=== PATIENT | male | born 1970 | race Caucasian/White ===

== ENCOUNTER 2016-12-19 00:27 | Inpatient (IN) | payer OTHER ==
[2016-12-19] MEDS ORDERED: ASPIRIN 81 MG CHEWABLE TAB PO ONE (00:40)
--- NOTE | 2016-12-19 00:43 | CPEKG ---
Heart Rate: 59 RR Interval: 1017 P-R Interval: 180 QRSD Interval: 84 QT Interval: 408 QTC Interval: 405 P [place]: 22 QRS [place]: 14 T Wave [place]: 22 EKG Severity - NORMAL ECG - EKG Impression: SINUS RHYTHM Electronically Signed By: Curt Brown 19-Dec-2016 05:18:52
--- NOTE | 2016-12-19 00:52 | EDPHY ---
H & P Stated Complaint: CP, SOB Time Seen by Provider: 12/19/16 00:51 HPI/ROS: Chief Complaint: Chest tightness, shortness of breath HPI: 38-year-old male with a history of coronary artery disease woke from sleep at 11 o'clock this evening feeling sweaty with chest tightness and feeling shortness of breath. Tightness was about a 4/10. Did not have any true pain. Did take 2 nitroglycerin with no significant change. Has had some mild loose stools for the last several days. No fevers or chills. No nausea or vomiting. Sees Dr. Doll, cardiology. Has significant coronary disease with collaterals from his LAD. Had an ME in 2000. Patient also has a history of sleep apnea uses a BiPAP machine at night. Does take aspirin daily. No recent travel or long periods of immobilization. In no new leg pain or swelling. No pain with inspiration. ROS: 10 point Review of Systems is negative except as noted in the HPI. PMH: Coronary artery disease with occlusion of the circumflex and RCA per his report. ME in 2000, Sleep apnea Medications: Plavix, Coreg, Altace, Lipitor, aspirin, Zyrtec, Flonase, CPAP Allergies: No known drug allergies Social History: No smoking, rare alcohol, no recreational drug use Family History: Coronary disease Physical Exam: Gen: Awake, Alert, No Distress, obese HEENT: Nose: no rhinorrhea Eyes: PERRLA, EOMI Mouth: Moist mucosa Neck: Supple, no JVD Chest: nontender, lungs clear to auscultation Heart: S1, S2 normal, no murmur Abd: Soft, non-tender, no guarding Back: no CVA tenderness, no midline tenderness Ext: no edema, non-tender Skin: no rash Neuro: CN II-XII intact, Sensation grossly intact, Strength 5/5 in bilateral upper and lower extremities - Personal History Current Tetanus/Diphtheria Vaccine: Yes Current Tetanus Diphtheria and Acellular Pertussis (TDAP): Yes - Medical/Surgical History Hx Asthma: No Hx Chronic Respiratory Disease: No Hx Diabetes: No Hx Cardiac Disease: Yes Hx Renal Disease: No Hx Cirrhosis: No Hx Alcoholism: No Hx HIV/AIDS: No Hx Splenectomy or Spleen Trauma: No Other PMH: CAD, - Social History Smoking Status: Never smoked Constitutional: Initial Vital Signs Temperature (C) 36.5 C 12/19/16 00:32 Heart Rate 61 12/19/16 00:32 Respiratory Rate 16 12/19/16 00:32 Blood Pressure 120/87 H 12/19/16 00:32 O2 Sat (%) 92 12/19/16 00:32 O2 Delivery Mode Room Air Allergies/Adverse Reactions: No Known Allergies Allergy (Unverified 12/19/16 00:31) Home Medications: Medication Instructions Recorded Altace 12/19/16 Aspirin 12/19/16 Coreg 12/19/16 Lipitor 12/19/16 Nitroglycerin 12/19/16 Plavix 12/19/16 Zyrtec 12/19/16 Medical Decision Making - Diagnostics EKG Interpretation: ECG time 12:41 a.m. sinus rhythm with a rate of 59, normal axis, normal intervals, no acute ST or T-wave changes. Impression: Normal ECG. Imaging Results: Chest x-ray is negative per my interpretation Imaging: I viewed and interpreted images myself ED Course/Re-evaluation: 46-year-old male with a significant coronary history presenting with chest tightness. ECG is normal. Troponin is negative. He has been comfortable in the emergency department. He did receive aspirin and nitroglycerin. I have discussed with Dr. Mabel Jamil, hospitalist. Will admit to her service for further evaluation. - Data Points Laboratory Results: Laboratory Results 12/19/16 00:47 12/19/16 00:47 12/19/16 12/19/16 00:47 00:47 WBC 5.82 10^3/uL 10^3/uL (3.80-9.50) RBC 5.01 10^6/uL 10^6/uL (4.40-6.38) Hgb 16.3 g/dL g/dL (13.7-17.5) Hct 45.3 % % (40.0-51.0) MCV 90.4 fL fL (81.5-99.8) MCH 32.5 pg pg (27.9-34.1) MCHC 36.0 g/dL g/dL (32.4-36.7) RDW 13.0 % % (11.5-15.2) Plt Count 170 10^3/uL 10^3/uL (150-400) MPV 9.9 fL fL (8.7-11.7) Neut % (Auto) 34.6 % L % (39.3-74.2) Lymph % (Auto) 52.4 % H % (15.0-45.0) [place] % (Auto) 9.5 % % (4.5-13.0) Eos % (Auto) 2.2 % % (0.6-7.6) Baso % (Auto) 1.0 % % (0.3-1.7) Nucleat RBC Rel Count 0.0 % % (0.0-0.2) Absolute Neuts (auto) 2.01 10^3/uL 10^3/uL (1.70-6.50) Absolute Lymphs (auto) 3.05 10^3/uL H 10^3/uL (1.00-3.00) Absolute Monos (auto) 0.55 10^3/uL 10^3/uL (0.30-0.80) Absolute Eos (auto) 0.13 10^3/uL 10^3/uL (0.03-0.40) Absolute Basos (auto) 0.06 10^3/uL 10^3/uL (0.02-0.10) Absolute Nucleated RBC 0.00 10^3/uL 10^3/uL (0-0.01) Immature Gran % 0.3 % % (0.0-1.1) Immature Gran # 0.02 10^3/uL 10^3/uL (0.00-0.10) Sodium 136 mEq/L mEq/L (134-144) Potassium 4.3 mEq/L mEq/L (3.5-5.2) Chloride 104 mEq/L mEq/L (97-110) Carbon Dioxide 21 mEq/l L mEq/l (22-31) Anion Gap 11 mEq/L mEq/L (8-16) BUN 16 mg/dL mg/dL (7-23) Creatinine 1.1 mg/dL mg/dL (0.7-1.3) Estimated GFR > 60 Glucose 161 mg/dL H mg/dL (70-100) Calcium 9.9 mg/dL mg/dL (8.5-10.4) Troponin I < 0.012 ng/mL ng/mL (0-0.034) Medications Given: Discontinued Medications Aspirin (Aspirin) 324 mg PO EDNOW ONE Stop: 12/19/16 00:41 Last Admin: 12/19/16 00:45 Dose: 324 mg Departure - Departure Disposition: [facility] Inpatient Acute Clinical Impression: Chest pain Condition: Fair Referrals: NONE *PRIMARY CARE P,. [Primary Care Provider] - As per Instructions
[2016-12-19 01:01] LABS: % IMMATURE GRANULYOCYTES 0.3 % (0.0-1.1); ABSOLUTE IMMATURE GRANULOCYTES 0.02 10^3/uL (0.00-0.10); ADD DIFF? NO; ADD MORPH? NO; ADD SCAN? NO; ATYPICAL LYMPHOCYTE FLAG 10 (0-99); FRAGMENT RBC FLAG 0 (0-99); HEMATOCRIT 45.3 % (40.0-51.0); HEMOGLOBIN 16.3 g/dL (13.7-17.5); LEFT SHIFT FLG 0 (0-99); LIPEMIA HEMOLYSIS FLAG 90 (0-99); MEAN CELL HEMOGLOBIN 32.5 pg (27.9-34.1); MEAN CELL VOLUME 90.4 fL (81.5-99.8); MEAN PLATELET VOLUME 9.9 fL (8.7-11.7); PLATELET CLUMPS FLAG 0 (0-99); PLATELET COUNT 170 10^3/uL (150-400); RED BLOOD CELL COUNT 5.01 10^6/uL (4.40-6.38)
[2016-12-19 01:08] LABS: ANION GAP 11 mEq/L (8-16); CALCIUM 9.9 mg/dL (8.5-10.4); CARBON DIOXIDE 21 mEq/l (22-31); CHLORIDE 104 mEq/L (97-110); CREATININE 1.1 mg/dL (0.7-1.3); GLOMERULAR FILTRATION RATE > 60; GLUCOSE 161 mg/dL (70-100); POTASSIUM 4.3 mEq/L (3.5-5.2); SODIUM 136 mEq/L (134-144)
[2016-12-19 01:20] LABS: TROPONIN I < 0.012 ng/mL (0-0.034)
[2016-12-19] MEDS ORDERED: ONDANSETRON 4 MG/2 ML VIAL IVP PRN (05:26)
[2016-12-19] MEDS ORDERED: ACETAMINOPHEN 325 MG TAB PO PRN (05:26)
[2016-12-19] MEDS ORDERED: 1/2 NS 1,000 ML IV SCH (05:30)
[2016-12-19 06:12] LABS: CHOLESTEROL 191 mg/dL (140-200); CHOLESTEROL/HDL RATIO 6.16 RATIO (1.00-4.97); HIGH DENSITY LIPOPROTEIN 31 mg/dL (40-65); LDL/HDL RATIO 4.42 RATIO (1.00-3.64); LOW DENSITY LIPOPROTEIN 137 mg/dL (70-100); NON-HIGH DENSITY LIPOPROTEIN 160 mg/dL (90-129); TRIGLYCERIDE 118 mg/dL (40-150); VERY LOW DENSITY LIPOPROTEINS 23 mg/dL (8-25)
[2016-12-19 06:23] LABS: TROPONIN I < 0.012 ng/mL (0-0.034)
--- NOTE | 2016-12-19 07:51 | GHP ---
[f rep st] HISTORY AND PHYSICAL DATE OF ADMISSION: 12/19/2016 CHIEF COMPLAINT: Chest pressure. HISTORY: The patient is a 46-year-old male with a complicated coronary history. He had his first M I at age 31 with stents to the LAD and right coronary artery in 2000. He had a followup cardiac cat heterization in [facility] 3 years ago which showed complete occlusion of the right co ronary and circumflex with collateral flow. He now re-presents to the hospital with chest tightness . Had onset at 11 p.m. with associated diaphoresis and shortness of breath. He took 2 nitroglyceri n at home and it was no better. This is different from his usual angina presentation as he has prev iously presented with AFib and not chest pain as his indication of ischemia. He describes it as a l eft-sided chest pressure without radiation. It waxes and wanes, and he has a tiny bit left right no w. He has never had chest pressure like this ever before. PAST MEDICAL HISTORY: 1. Coronary artery disease status post stents to the LAD and right coronary artery in 2000. Follow up catheterization 3 years ago at [facility] showed complete right coronary artery and circumfl ex occlusion with collateral flow. 2. Obstructive sleep apnea, on BiPAP. 3. Morbid obesity. 4. Atrial fibrillation. MEDICATIONS: Please see computer record for a full detailed list. ALLERGIES: No known drug allergies. SOCIAL HISTORY: No smoking. No alcohol. Lives with his . 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 REVIEW OF SYSTEMS: Complete review of systems obtained. Review of systems is negative regarding co nstitutional, HEENT, GI, pulmonary, cardiovascular, , hematology, skin, muscular, endocrine, psych except for positives and negatives as noted in HPI. FAMILY HISTORY: Positive for coronary artery disease. PHYSICAL EXAMINATION: GENERAL: Well-developed, well-nourished male in no acute distress. VITAL SI GNS: Temperature is 36.5, pulse 63, blood pressure 121/83, saturating 94% on room air. EYES: Norm al conjunctivae. Pupils equal, round, reactive to light. ENT: Normal ears and nose. Hearing inta ct. Normal teeth. Oropharynx moist. NECK: Trachea midline. No thyromegaly. CHEST: Normal resp iratory effort. LUNGS: Clear to auscultation bilaterally. CARDIOVASCULAR: Regular rate and rhyth m. No murmur. No lower extremity edema. ABDOMEN: Soft, nontender. No hepatosplenomegaly. SKIN: Warm, dry, intact. No rash. MUSCULOSKELETAL: No cyanosis or clubbing. Strength 5/5 in upper an d lower extremities. NEUROLOGIC: Cranial nerves intact. Normal sensation to light touch. PSYCHIA TRIC: Alert and oriented x3. Normal affect. Normal judgment and insight. Normal memory. LABORATORY DATA: White count 5.82, hematocrit 45.3, platelets 170. Sodium 136, potassium 4.3, chlo ride 104, bicarb 21, BUN 16, creatinine 1.1, glucose 161. Troponins negative. EKG viewed by me. M y first interpretation is normal sinus rhythm, no ST or T-wave changes. Chest x-ray is negative. ASSESSMENT/PLAN: 1. Chest pain. He has a complicated coronary artery disease history, having his first FL at age 31 . He has known 100% right coronary artery and circumflex occlusion with collateral flow. His previ ous cardiac catheterizations are all at [facility], but his history professor is Dr. Kwame Doll, a nd those records would be in the office. Given his complicated history, [facility] him rather than stress testing. I will keep him n.p.o. and Cardi ology should see him in the morning. Continue his aspirin and resume Coreg when dose clarified. Wi ll check his lipids, he is on a statin drug. 2. Obstructive sleep apnea. Continue BiPAP q.h.s. per home settings. 3. Morbid obesity. BMI 43. 4. History of atrial fibrillation. Will monitor. He is currently in normal sinus rhythm. CODE STATUS: Full. ADMISSION STATUS: Will admit to observation pending chest pain workup. DEEP VEIN THROMBOSIS PROPHYLAXIS: He is low risk. Will hold off on pharmacologic prophylaxis at th is time. /[id number]/MODL
--- NOTE | 2016-12-19 08:41 | CPEKG ---
Heart Rate: 62 RR Interval: 968 P-R Interval: 180 QRSD Interval: 86 QT Interval: 416 QTC Interval: 423 P [place]: 24 QRS [place]: 11 T Wave [place]: 19 EKG Severity - ABNORMAL ECG - EKG Impression: SINUS RHYTHM EKG Impression: CONSIDER ANTEROSEPTAL INFARCT Electronically Signed By: Hebert Sánchez 19-Dec-2016 10:43:32
[2016-12-19] MEDS ORDERED: NITROGLYCERIN 0.4 MG BTL SL PRN (10:43)
[2016-12-19] MEDS ORDERED: CLOPIDOGREL BISULFATE 75 MG TAB PO SCH (10:45)
[2016-12-19] MEDS ORDERED: diphenhydrAMINE 25 MG CAP PO ONE (11:59)
[2016-12-19] MEDS ORDERED: TEMAZEPAM 15 MG CAP PO PRN (11:59)
[2016-12-19] MEDS ORDERED: DIAZEPAM 5 MG TAB PO ONE (11:59)
[2016-12-19] MEDS: ASPIRIN 81 MG CHEWABLE TAB PO SCH (12:14)
--- NOTE | 2016-12-19 12:14 | PDCARCONS ---
Cardiology Consult Reason for Consult: chest pain Chief Complaint: chest pain, diaphoresis Requesting Physician: Loulou History of Present Illness: 46 yo with known CAD hx. of PCI with occluded RCA and Cx with one day of substernal chest pain, shortness of breath and coolness. Still having vague discomfort. History Information - Allergies/Home Medication List Allergies/Adverse Reactions: No Known Allergies Allergy (Unverified 12/19/16 00:31) Home Medications: Aspirin [Aspirin 81mg (*)] 162 mg PO DAILY 12/19/16 [Last Taken 12/18/16] Atorvastatin Calcium [Lipitor 80 mg] 80 mg PO HS 12/19/16 [Last Taken 12/18/16] Carvedilol [Coreg (*)] 6.25 mg PO BIDMEAL 12/19/16 [Last Taken 12/18/16 18:00] Cetirizine [ZyrTEC 10 mg (*)] 10 mg PO DAILY 12/19/16 [Last Taken 12/18/16] Clopidogrel Bisulfate [Plavix (*)] 75 mg PO DAILY 12/19/16 [Last Taken 12/18/16] Nitroglycerin [Nitrostat 0.4 mg (*)] 0.4 mg SL Q5M PRN 12/19/16 [Last Taken 21:00 2 tabs] Ramipril [Altace 2.5mg (*)] 2.5 mg PO DAILY 12/19/16 [Last Taken 12/18/16] I have personally reviewed and updated: medical history, social history, surgical history - Past Medical History coronary artery disease - Surgical History Reports: angioplasty. Denies: no pertinent surgical hx - Social History Smoking Status: Never smoked Cardiac History - Cardiac History Cardiac Risk Factors: lipidemia Timing/Duration: Days Severity: moderate Severity Scale: 5 Location: substernal Activities at Onset: rest Physical Exam Temp Pulse Resp BP Pulse Ox 36.8 C 65 16 136/80 H 98 12/19/16 08:07 12/19/16 08:07 12/19/16 08:07 12/19/16 08:07 12/19/16 08:07 O2 (L/minute) 2 Constitutional: no apparent distress Eyes: PERRL, anicteric sclera Ears, Nose, Mouth, Throat: moist mucous membranes Cardiovascular: regular rate and rhythym, no murmur, rub, or gallop, No systolic murmur, No JVD Peripheral Pulses: 1+: carotid (R), carotid (L), 2+: femoral (R), femoral (L) Respiratory: no respiratory distress, no rales or rhonchi Genitourinary: no bladder fullness Skin: warm, normal color Musculoskeletal: full muscle strength, no muscle tenderness, normal joint ROM Neurologic: AAOx3 Psychiatric: interacting appropriately Lymph, Heme, Immunologic: no cervical LAD, no supraclavicular LAD Lab and Imaging 12/19/16 00:47 12/19/16 00:47 WBC 5.82 10^3/uL (3.80-9.50) 12/19/16 00:47 RBC 5.01 10^6/uL (4.40-6.38) 12/19/16 00:47 Hgb 16.3 g/dL (13.7-17.5) 12/19/16 00:47 Hct 45.3 % (40.0-51.0) 12/19/16 00:47 MCV 90.4 fL (81.5-99.8) 12/19/16 00:47 MCH 32.5 pg (27.9-34.1) 12/19/16 00:47 MCHC 36.0 g/dL (32.4-36.7) 12/19/16 00:47 RDW 13.0 % (11.5-15.2) 12/19/16 00:47 Plt Count 170 10^3/uL (150-400) 12/19/16 00:47 MPV 9.9 fL (8.7-11.7) 12/19/16 00:47 Neut % (Auto) 34.6 % (39.3-74.2) L 12/19/16 00:47 Lymph % (Auto) 52.4 % (15.0-45.0) H 12/19/16 00:47 [place] % (Auto) 9.5 % (4.5-13.0) 12/19/16 00:47 Eos % (Auto) 2.2 % (0.6-7.6) 12/19/16 00:47 Baso % (Auto) 1.0 % (0.3-1.7) 12/19/16 00:47 Nucleat RBC Rel Count 0.0 % (0.0-0.2) 12/19/16 00:47 Absolute Neuts (auto) 2.01 10^3/uL (1.70-6.50) 12/19/16 00:47 Absolute Lymphs (auto) 3.05 10^3/uL (1.00-3.00) H 12/19/16 00:47 Absolute Monos (auto) 0.55 10^3/uL (0.30-0.80) 12/19/16 00:47 Absolute Eos (auto) 0.13 10^3/uL (0.03-0.40) 12/19/16 00:47 Absolute Basos (auto) 0.06 10^3/uL (0.02-0.10) 12/19/16 00:47 Absolute Nucleated RBC 0.00 10^3/uL (0-0.01) 12/19/16 00:47 Immature Gran % 0.3 % (0.0-1.1) 12/19/16 00:47 Immature Gran # 0.02 10^3/uL (0.00-0.10) 12/19/16 00:47 Sodium 136 mEq/L (134-144) 12/19/16 00:47 Potassium 4.3 mEq/L (3.5-5.2) 12/19/16 00:47 Chloride 104 mEq/L (97-110) 12/19/16 00:47 Carbon Dioxide 21 mEq/l (22-31) L 12/19/16 00:47 Anion Gap 11 mEq/L (8-16) 12/19/16 00:47 BUN 16 mg/dL (7-23) 12/19/16 00:47 Creatinine 1.1 mg/dL (0.7-1.3) 12/19/16 00:47 Estimated GFR > 60 12/19/16 00:47 Glucose 161 mg/dL (70-100) H 12/19/16 00:47 Calcium 9.9 mg/dL (8.5-10.4) 12/19/16 00:47 Troponin I < 0.012 ng/mL (0-0.034) 12/19/16 05:55 Triglycerides 118 mg/dL (40-150) 12/19/16 05:55 Cholesterol 191 mg/dL (140-200) 12/19/16 05:55 Cholesterol Risk Factr 1.4 (0.2-1.0) H 12/19/16 05:55 LDL Cholesterol, Calc 137 mg/dL (70-100) H 12/19/16 05:55 LDL Risk Factor 1.4 (0.2-1.0) H 12/19/16 05:55 VLDL Cholesterol 23 mg/dL (8-25) 12/19/16 05:55 Non-HDL Cholesterol 160 mg/dL (90-129) H 12/19/16 05:55 HDL Cholesterol 31 mg/dL (40-65) L 12/19/16 05:55 LDL/HDL Ratio 4.42 RATIO (1.00-3.64) H 12/19/16 05:55 Cholesterol/HDL Ratio 6.16 RATIO (1.00-4.97) H 12/19/16 05:55 Laboratory Tests 12/19/16 12/19/16 00:47 05:55 Troponin I < 0.012 < 0.012 LDL Cholesterol, Calc 137 H EKG Interpretation: Positive for: other (SR with septal Q waves.) A/P Assessment: 46 yo with ecg evidence of anterior RI, chest pressure with known occlusion of the RCA and Cx fed by collaterals from a moderately diseased LAD on past angiography. Risk not well managed with elevated LDL and obesity. Plan: angiogram today optimize risk consider CABG Review of Systems - Review of Systems Constitutional: denies: chills, fever EENTM: no symptoms reported Respiratory: shortness of breath. denies: wheezing Cardiac: chest pain, edema. denies: irregular heart rate, lightheadedness, palpitations, syncope Gastrointestinal/Abdominal: no symptoms reported Genitourinary: no symptoms Musculoskelatal: no symptoms Skin: no symptoms Neurological: no symptoms Hematologic/Lymphatic: no symptoms reported Immunologic/allergic: no symptoms reported
[2016-12-19] MEDS ORDERED: fentaNYL 100 MCG/2 ML INJ ONE ×2 (12:37→13:14)
[2016-12-19] MEDS ORDERED: VERAPAMIL 5 MG/2 ML VIAL ONE (12:37)
[2016-12-19] MEDS ORDERED: MIDAZOLAM 2 MG/2 ML VIAL ONE ×2 (12:37→13:14)
[2016-12-19] MEDS ORDERED: HEPARIN 10,000 UNIT/10 ML MDV ONE (12:37)
[2016-12-19] MEDS ORDERED: LIDOCAINE 1% 300 MG/30 ML SDV ONE (12:37)
[2016-12-19] MEDS ORDERED: IOPAMIDOL (ISOVUE-370) 150 ML BTL IV ONE ×2 (12:38→13:28)
[2016-12-19] MEDS ORDERED: NITROGLYCERIN 0.4 MG BTL SL ONE (13:45)
[2016-12-19] MEDS ORDERED: ATROPINE SULFATE 1 MG/10 ML SYR IVP PRN (13:51)
--- NOTE | 2016-12-19 13:56 | PDDXCAT ---
Diagnostic Cath Note - . 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 80% stenosis after the diagonal. Indeterminate by standard angiogram. Confirmed by intravascular ultrasound LCX: 100% occluded with ghosting of the obtuse marginal branch RCA: 100% occluded with left to right collaterals. EDP: 10 mm of mercury LVEF: 60 Wall motion: Normal Complications: None Estimated blood loss: <50ml Closure method: TR Band Assessment: Severe [place] three-vessel coronary disease with occlusion of the right coronary artery, circumflex artery with 80% stenosis of the LAD in its midportion. Normal left ventricular systolic function. Plan: Coronary artery bypass grafting Intervention: Procedure: Intravascular ultrasound of the indeterminate LAD stenosis by coronary angiography. After reviewing diagnostic angiograms indeterminate mid LAD stenosis was identified. In light of occlusion of the right coronary and circumflex I want to be sure about his LAD stenosis. Patient was anticoagulated with heparin. Using a 5 [place] JL 3.5 guiding catheter left main coronary selectively intubated. Using a 0.014 luge wire the LAD was entered. Intravascular ultrasound was slow pullback was performed. There was an 85% calcific atheroma at the level of the bifurcation of the diagonal. There was acute ST elevation with occlusion by the intravascular ultrasound catheter. Device was removed patient was administered sublingual nitroglycerin with resolution of EKG changes. Conclusions: Critical mid LAD stenosis. In light of three-vessel disease and age of 46 would recommend coronary artery bypass grafting. This will be discussed with the patient family. Patient Problems: Problems Problem Status Onset Coronary artery disease Acute Chest pain Acute
[2016-12-19] MEDS ORDERED: MUPIROCIN 2% 22 GM OINT NS ONE (16:23)
[2016-12-19 17:36] LABS: HEMOGLOBIN A1C 7.1 % (4.0-6.0)
[2016-12-19] MEDS: CARVEDILOL 6.25 MG TAB PO SCH (19:08)
--- NOTE | 2016-12-19 19:44 | GCON ---
[f rep st] CONSULTATION DATE OF CONSULTATION: 12/19/2016 REFERRING PHYSICIAN: Primo Mcmullen MD Patient seen at the request of Dr. Mcmullen, with the patient's permission. IMPRESSION: 1. Unstable angina pectoris with severe 3-vessel disease. 2. History of paroxysmal atrial fibrillation. 3. Morbid obesity. 4. Sleep apnea. 5. Hyperlipidemia. RECOMMENDATIONS: This gentleman should undergo coronary artery revascularization on this admission. Because of his unstable anginal nature we will proceed with surgery in the morning despite his vida ng on Plavix. He understands the slight increased risk of bleeding, although in my experience it is extremely rare that Plavix contributes to significant intraoperative bleeding. Because of his paro xysmal atrial fibrillation and his likely predisposition to it with obesity, sleep apnea and heart d isease, I have offered him Su Maze 4 procedure simultaneously. He is agreeable and appreciates our recommendations. CHIEF COMPLAINT: A 46-year-old gentleman with a cardiac history beginning at age 31 with multiple p rior stents. He does have a bad family history with early coronary disease in multiple family membe rs. He has known severe hyperlipidemia. He had onset of severe diaphoresis and shortness of breath with chest tightness at 3:00 a.m. and presented to the ER. Diagnostic cath today showed severe 3-v essel disease. Please see cath report with normal LV function. MEDICATIONS: Please see computer record for full details. ALLERGIES: Denied. SOCIAL HISTORY: Does not smoke. He does not drink. 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 REVIEW OF SYSTEMS: Except for presenting complaints he is otherwise asymptomatic. PHYSICAL EXAMINATION: GENERAL: This is a morbidly obese, young gentleman lying supine, accompanied by his , no apparent distress. VITAL SIGNS: 130/84, pulse 66, respirations 16, O2 saturation 95% on room air. HEENT: Normocephalic. PERRLA. EOMI. Neck without bruit, adenopathy or thyromeg brendon. HEART: Rate is regular without murmur. LUNGS: Clear. ABDOMEN: Markedly protuberant. Maksim l sounds are active, soft, nontender. Unable to palpate organs due to obesity. Pedal pulses are 2+ and symmetrical. He has 1+ edema bilaterally. Please see cath report for details as well as lab reports. /[id number]/MODL
[2016-12-19] MEDS: ATORVASTATIN CALCIUM 40 MG TAB PO SCH (20:52)
[2016-12-19] MEDS: MUPIROCIN 2% 22 GM OINT NS SCH (20:55)
[2016-12-19] MEDS ORDERED: NON-FORMULARY NEW DRUG (Atorvastatin Calcium [Lipitor 80 Mg] 80 MG) PO SCH (21:00)
[2016-12-19] MEDS ORDERED: CHLORHEXIDINE GLUC HIBICLENS 118 ML BTL TP SCH (21:00)
[2016-12-20] MEDS ORDERED: MANNITOL 25% 12.5 GM/50 ML VIAL IV ONE (06:00)
[2016-12-20] MEDS ORDERED: PHENYLEPHRINE HCL 50 MG in NS 250 ML IV ONE (06:00)
[2016-12-20] MEDS ORDERED: VERAPAMIL 5 MG, NITROGLYCERIN 2.5 MG, HEPARIN 500 UNIT, SODIUM BICARBONATE 0.2 MEQ in L... MISC ONE (06:00)
[2016-12-20] MEDS ORDERED: AMINOCAPROIC ACID 5 GM/20 ML VIAL IV ONE (06:00)
[2016-12-20] MEDS ORDERED: NOREPINEPHRINE BITARTRATE 16 MG in NS 250 ML IV ONE (06:00)
[2016-12-20] MEDS ORDERED: niCARdipine/NACL 200 ML IV SCH (06:00)
[2016-12-20] MEDS ORDERED: ceFAZolin 3 GM in D5W 100 ML IV ONE (06:00)
[2016-12-20] MEDS ORDERED: INSULIN REGULAR HUMAN 100 UNIT in NS 100 ML IV ONE (06:00)
[2016-12-20] MEDS ORDERED: CITRATE DEXTROSE SOLN 500 ML BAG MISC ONE (06:00)
[2016-12-20] MEDS ORDERED: SODIUM BICARBONATE 20 MEQ, LIDOCAINE 1% 10 ML in NORMOSOL-R 1,000 ML MISC ONE (06:00)
[2016-12-20] MEDS ORDERED: LIDOCAINE 2% 100 MG/5 ML SYR ONE (06:34)
[2016-12-20] MEDS ORDERED: NA BICARBONATE 50 MEQ/50 ML VIAL ONE (06:34)
[2016-12-20] MEDS ORDERED: AMIODARONE HCL 150 MG/3 ML VIAL ONE (06:34)
[2016-12-20] MEDS ORDERED: DOPamine/DEXTROSE/250 ML BAG IV ONE (06:34)
[2016-12-20] MEDS ORDERED: AMINOCAPROIC ACID 5 GM/20 ML VIAL ONE (06:34)
[2016-12-20] MEDS ORDERED: methylPREDNISolone SOD SUCC 1 GM/8 ML VIAL ONE (06:34)
[2016-12-20] MEDS ORDERED: MILRINONE/DEXTROSE/100 ML BAG IV ONE (06:34)
[2016-12-20] MEDS ORDERED: HEPARIN 10,000 UNIT/10 ML MDV ONE (06:34)
[2016-12-20] MEDS ORDERED: niCARdipine/NACL/200 ML BAG IV ONE (06:34)
[2016-12-20] MEDS ORDERED: ADENOSINE 6 MG/2 ML VIAL ONE (06:34)
[2016-12-20] MEDS ORDERED: CITRATE DEXTROSE SOLN 500 ML BAG ONE (06:34)
[2016-12-20] MEDS ORDERED: MAGNESIUM SULFATE 1 GM/2 ML VIAL ONE (06:34)
[2016-12-20] MEDS ORDERED: POTASSIUM Cl (KCl) 20 MEQ/50 ML BAG IV ONE (06:34)
[2016-12-20] MEDS ORDERED: ALBUMIN 5% 250 ML BOTTLE IV ONE (06:34)
[2016-12-20] MEDS ORDERED: CALCIUM CHLORIDE 1 GM/10 ML INJ ONE (06:34)
[2016-12-20] MEDS ORDERED: PROTAMINE SULFATE 50 MG/5 ML VIAL IVP ONE ×2 (06:34→18:44)
[2016-12-20] MEDS ORDERED: ceFAZolin 1 GM VIAL ONE (06:35)
[2016-12-20] MEDS ORDERED: RAMIPRIL 2.5 MG CAP PO SCH (09:00)
[2016-12-20] MEDS ORDERED: LR 1,000 ML IV ONE (11:12)
--- NOTE | 2016-12-20 12:02 | SOAPPROG ---
JAMISON Progress Note Assessment/Plan: Assessment: 1. Three-vessel coronary disease. 2. Angina. 3. Hyperlipidemia Plan: Coronary artery bypass grafting today 12/20/16 12:01 Subjective: Uneventful night. No resting chest pain. Cardiac review of systems is negative for chest pain, shortness of breath, PND , orthopnea, palpitations, syncope, near syncope, edema. Objective: Vital Signs Temp Pulse Resp BP Pulse Ox 36.8 C 72 16 138/62 H 92 12/20/16 11:20 12/20/16 11:20 12/20/16 11:20 12/20/16 11:20 12/20/16 11:20 12/19/16 12/20/16 12/21/16 05:59 05:59 05:59 Intake Total 500 Balance 500 Physical Exam - Physical Exam General Appearance: alert, no apparent distress Neck: non-tender, full range of motion Respiratory: chest non-tender, lungs clear Cardiac/Chest: normal peripheral pulses, regular rate, rhythm ICD10 Worksheet Patient Problems: Problems Problem Status Onset Coronary artery disease Acute Chest pain Acute
[2016-12-20] MEDS: MUPIROCIN 2% 22 GM OINT NS SCH ×2 (12:18→21:00)
[2016-12-20] MEDS ORDERED: MIDAZOLAM 2 MG/2 ML VIAL IVP ONE (12:46)
--- NOTE | 2016-12-20 12:46 | PDANEPAE ---
ANE History of Present Illness 46 yo cabg/maze cad s/p ptca nl LV Htn PAF BENIGNO Obesity ANE Past Medical History - Cardiovascular History Hx Hypertension: Yes Hx Arrhythmias: Yes Hx Chest Pain: Yes Hx Coronary Artery / Peripheral Vascular Disease: Yes Hx CHF / Valvular Disease: No Hx Palpitations: No - Pulmonary History Hx COPD: No Hx Asthma/Reactive Airway Disease: No Hx Recent Upper Respiratory Infection: No Hx Oxygen in Use at Home: No - Endocrine History Hx Diabetes: No ANE Patient History - Allergies Allergies/Adverse Reactions: No Known Allergies Allergy (Unverified 12/19/16 00:31) - Home Medications Home medications: home medication list seen and reviewed Home Medications: Aspirin [Aspirin 81mg (*)] 162 mg PO DAILY 12/19/16 [Last Taken 12/18/16] Atorvastatin Calcium [Lipitor 80 mg] 80 mg PO HS 12/19/16 [Last Taken 12/18/16] Carvedilol [Coreg (*)] 6.25 mg PO BIDMEAL 12/19/16 [Last Taken 12/18/16 18:00] Cetirizine [ZyrTEC 10 mg (*)] 10 mg PO DAILY 12/19/16 [Last Taken 12/18/16] Clopidogrel Bisulfate [Plavix (*)] 75 mg PO DAILY 12/19/16 [Last Taken 12/18/16] Nitroglycerin [Nitrostat 0.4 mg (*)] 0.4 mg SL Q5M PRN 12/19/16 [Last Taken 21:00 2 tabs] Ramipril [Altace 2.5mg (*)] 2.5 mg PO DAILY 12/19/16 [Last Taken 12/18/16] - NPO status NPO Since - Liquids (Date): 12/20/16 NPO Since - Liquids (Time): 00:01 NPO Since - Solids (Date): 12/20/16 NPO Since - Solids (Time): 00:01 - Anes Hx Anes Hx: no prior problems - Smoking Hx Smoking Status: Never smoked ANE Labs/Vital Signs - Labs Result Diagrams: 12/19/16 00:47 12/19/16 00:47 - Vital Signs Blood Pressure: 138/62 Heart Rate: 72 Respiratory Rate: 16 O2 Sat (%): 92 Height: 5 ft 11 in Weight: 139.2 kg ANE Physical Exam - Airway Neck exam: FROM Mallampati Score: Class 3 Mouth exam: normal dental/mouth exam - Pulmonary Pulmonary: no respiratory distress - Cardiovascular Cardiovascular: regular rate and rhythym - ASA Status ASA Status: IV ANE Anesthesia Plan Anesthesia Plan: general endotracheal anesthesia Lines/Monitors: arterial line, central line, DEYSI
[2016-12-20] MEDS ORDERED: fentaNYL 100 MCG/2 ML INJ ONE ×2 (12:48→12:49)
[2016-12-20] MEDS ORDERED: REMIFENTANIL HCL 1 MG VIAL ONE ×3 (12:48→17:34)
[2016-12-20] MEDS ORDERED: ROCURONIUM 100 MG/10 ML VIAL ONE (12:49)
[2016-12-20] MEDS ORDERED: PROPOFOL/EMULSION 500 MG/50 ML BOTTLE IV ONE ×3 (12:49→17:34)
[2016-12-20] MEDS ORDERED: MINERAL OIL 10 ML VIAL ONE (12:52)
[2016-12-20] MEDS ORDERED: PAPAVERINE HCL 60 MG/2 ML SDV ONE (12:52)
[2016-12-20] MEDS ORDERED: VERAPAMIL 5 MG/2 ML VIAL ONE (12:52)
[2016-12-20] MEDS ORDERED: DEXMEDETOMIDINE HCL 400 MCG in NS 100 ML IV ONE (13:30)
[2016-12-20] MEDS ORDERED: HYDROmorphONE/DILAUDID 2 MG/ML INJ ONE (16:47)
[2016-12-20] MEDS ORDERED: MAGNESIUM SULF 2 GM/WATER 50 ML BAG IV ONE (17:51)
[2016-12-20] MEDS ORDERED: DESMOPRESSIN ACETATE 30 MCG in NS 50 ML IV ONE (18:30)
--- NOTE | 2016-12-20 19:39 | POSTOPPROG ---
Post Op Note Date of Operation: 12/20/16 Surgeon: Cliff Lema Bread And Pastry Baker: Henok Anesthesiologist: Claudia Anesthesia: GET(General Endotracheal) Pre-op Diagnosis: ASHD, PAF, morbid obesity Procedure: CAB 3 Dc-Lad, SVG-Lcx,Pda, EVH, L side ablation w Atriclip Inf/Abcess present in the surg proc area at time of surgery?: No EBL: 100-500 Drains: Other (3 blakes)
[2016-12-20] MEDS ORDERED: MAGNESIUM SULF 2 GM/WATER 50 ML IV ONE (19:46)
[2016-12-20] MEDS ORDERED: HYDROCODONE/APAP 5/325 TAB PO PRN (19:46)
[2016-12-20] MEDS ORDERED: D50W 25 GM/50 ML SYR IVP PRN (19:46)
[2016-12-20] MEDS ORDERED: MAGNESIUM HYDROXIDE 30 ML UDCUP PO PRN (19:46)
[2016-12-20] MEDS ORDERED: MEPERIDINE 25 MG/ML SYR IVP PRN (19:46)
[2016-12-20] MEDS ORDERED: POLYETHYLENE GLYCOL 3350 17 GM PKT PO PRN (19:46)
[2016-12-20] MEDS ORDERED: ACETAMINOPHEN 650 MG SUPP PR PRN (19:46)
[2016-12-20] MEDS ORDERED: SODIUM CL NASAL 45 ML BTL EACHNARE PRN (19:46)
[2016-12-20] MEDS ORDERED: POTASSIUM Cl (KCl) 50 ML IV PRN (19:46)
[2016-12-20] MEDS ORDERED: LACTULOSE 20 GM/30 ML UDCUP PO PRN (19:46)
[2016-12-20] MEDS ORDERED: CEPACOL LOZENGE PO PRN (19:46)
[2016-12-20] MEDS ORDERED: PANTOPRAZOLE SODIUM 40 MG in NS 100 ML IV ONE (19:46)
[2016-12-20] MEDS ORDERED: BISACODYL 10 MG SUPP PR PRN (19:46)
[2016-12-20] MEDS ORDERED: INSULIN REGULAR HUMAN 100 UNIT in NS 100 ML IV SCH (20:00)
[2016-12-20] MEDS ORDERED: NS 1,000 ML IV SCH (20:00)
[2016-12-20] MEDS: CARVEDILOL 6.25 MG TAB PO SCH ×2 (21:20→21:21)
[2016-12-20] MEDS: ASPIRIN 81 MG CHEWABLE TAB PO SCH (21:21)
--- NOTE | 2016-12-20 22:10 | CPEKG ---
Heart Rate: 84 RR Interval: 714 P-R Interval: 184 QRSD Interval: 82 QT Interval: 376 QTC Interval: 445 P [place]: 58 QRS [place]: 25 T Wave [place]: 4 EKG Severity - ABNORMAL ECG - EKG Impression: SINUS RHYTHM EKG Impression: ABNRM R PROG, CONSIDER ASMI OR LEAD PLACEMENT Electronically Signed By: Hebert Sánchez 21-Dec-2016 07:26:25
[2016-12-20 22:29] LABS: CALCULATED OXYGEN SATURATION 99 % (92-95); O2 CONCENTRATIION 80 % (0-100)
[2016-12-20] MEDS: fentaNYL 100 MCG/2 ML INJ IVP PRN (22:42)
[2016-12-20] MEDS: ceFAZolin 3 GM in D5W 100 ML IV SCH (22:56)
[2016-12-20] MEDS ORDERED: FUROSEMIDE 20 MG/2 ML VIAL IV ONE (23:00)
[2016-12-20] MEDS: CETIRIZINE 10 MG TAB PO SCH (23:24)
[2016-12-20] MEDS: DEXMEDETOMIDINE HCL 400 MCG in NS 100 ML IV SCH (23:26)
[2016-12-20] MEDS: SENNOSIDES/DOCUSATE SODIUM TAB PO SCH (23:45)
[2016-12-21] MEDS: DEXMEDETOMIDINE HCL 400 MCG in NS 100 ML IV SCH ×3 (01:19→04:32)
--- NOTE | 2016-12-21 02:38 | GOP ---
[f rep st] OPERATIVE REPORT DATE OF OPERATION: 12/20/2016 SURGEON: Cliff Lema DO SHIP JOINER: Harsha Whiting PA-C. ANESTHESIOLOGIST: Dr. Farr PREOPERATIVE DIAGNOSIS: 1. Unstable angina pectoris with severe 3-vessel disease. 2. Paroxysmal atrial fibrillation. 3. Morbid obesity. 4. Sleep apnea. POSTOPERATIVE DIAGNOSIS: 1. Unstable angina pectoris with severe 3-vessel disease. 2. Paroxysmal atrial fibrillation. 3. Morbid obesity. 4. Sleep apnea. PROCEDURE PERFORMED: 1. Coronary bypass grafting x3 with left internal mammary artery to the left anterior descending artery, saphenous vein graft to the lateral circumflex, and saphenous vein graft to the posterior descending artery. 2. Endoscopic vein harvest. 3. Left-sided ablation with all left-sided Su Maze lesion sets performed with an Atra clip, no right-sided lesions were performed. FINDINGS: DESCRIPTION OF PROCEDURE: Patient was brought to the operating room, intubated , and monitoring lines were placed. He was prepped and draped in sterile classical manner. Sternotomy was performed. The mammary was harvested, it was a 2 mm vessel with brisk flow. The aorta appeared to be intact with good LV function. Chambers were not markedly enlarged, despite the patient's morbid obesity. The aorta was without thickening or calcification. Venous conduits were good. Attempted endoscopic harvesting of the vein was performed; however, due to his obesity and collapsing of the tunnel as well as bleeding, we had to convert to open in order to harvest vein from the left thigh. This was then closed prior to bypass. Subsequently, we cannulated both cava and ascending aorta. Cardiopulmonary bypass was begun. Confirmed the patient had no evidence of exit or entrance block on either pulmonary vein. We then arrested the heart and performed pulmonary vein ablation with 8-10 lesion sets on both sides until transmurality was confirmed, with less than 10 seconds required to perform radiofrequency on the last attempt. We then opened the left atrial appendage, which was free of thrombus and completed the lesion set to the left superior pulmonary vein. A 35 mm Atra clip was then applied without difficulty. We then exposed the mitral valve through the right superior pulmonary vein after having previously defined the fat off Sondergaard groove in order to have better ablation lines. The left atrium was opened, it was retracted. We then performed cryo lesions on the dome lesion for 3 minutes, connecting the pulmonary veins, and radiofrequency ablation on the inferior lesion set. We then performed cryoablation to the isthmus lesion and overlapped that to a direct coronary sinus lesion with cryo for 3 minutes, overlapping the isthmus line. The left atrium was then closed. Because the patient only had paroxysmal atrial fibrillation and due to his morbid obesity this took quite some time, we had decided not to do the right- sided lesion set. We then exposed the lateral circumflex, which was a heavily calcified vessel throughout its course and chronically occluded. It was opened prior to the bifurcation. It was a 1.5 mm vessel, SVG was grafted to it but had rather poor flow. This anastomosis was completed proximally. We then performed a vein graft to the PDA, which was a thickened vessel measuring 2 mm in diameter. Throughout its course, it was quite thickened. It was also chronically occluded. It had better flows with injection and the proximal anastomosis was completed to the ascending aorta. Rewarming had begun while the mammary was grafted to the mid LAD, which was a 1.8 mm good quality vessel. The mammary was a 1.8 to 2 mm vessel with brisk flow. It was tacked to the epicardium. Crossclamp was removed with suction on the ascending aortic vent, with intermittent aspiration of the LV apex. When no further air was identified, the patient was weaned from bypass. It became evident that he had some oxygenation issues, which was probably due to shunting. We then resumed cardiopulmonary bypass for a period of time in order to let that resolve. He then was weaned from bypass without issues, with oxygenation; however, he had some bleeding from the poor quality circumflex vessel. We then re-arrested the heart in order to suture that because of the difficult exposure of his thickened heart and deep cavity and obese chest. This was completed. The cross -clamp was then removed again. He was then easily weaned from bypass. The heparin was reversed with protamine. The cannulas were removed and oversewn. I then spent some time correcting his coagulopathy. When we were satisfied no further bleeding was encountered, the lower portion of the pericardium was closed, leaving the upper portion open. The chest was approximated with wires and sternal bands. Because of the tension on the upper portion anastomosis, additional wires were placed due to his obesity. The remainder of the wounds were closed in a standard fashion. He was returned to ICU in stable condition. /[id number]/MODL MTDD
[2016-12-21] MEDS: ALBUMIN 5% 250 ML IV PRN ×2 (04:32→05:17)
[2016-12-21 04:59] LABS: % IMMATURE GRANULYOCYTES 0.4 % (0.0-1.1); ABSOLUTE IMMATURE GRANULOCYTES 0.04 10^3/uL (0.00-0.10); ADD DIFF? NO; ADD MORPH? NO; ADD SCAN? NO; ATYPICAL LYMPHOCYTE FLAG 0 (0-99); FRAGMENT RBC FLAG 0 (0-99); HEMATOCRIT 34.2 % (40.0-51.0); LEFT SHIFT FLG 20 (0-99); LIPEMIA HEMOLYSIS FLAG 90 (0-99); MEAN CELL HEMOGLOBIN 32.2 pg (27.9-34.1); MEAN CELL HEMOGLOBIN CONCENTR. 35.1 g/dL (32.4-36.7); MEAN CELL VOLUME 91.7 fL (81.5-99.8); MEAN PLATELET VOLUME 10.1 fL (8.7-11.7); PLATELET CLUMPS FLAG 0 (0-99); PLATELET COUNT 115 10^3/uL (150-400); RED BLOOD CELL COUNT 3.73 10^6/uL (4.40-6.38); RED CELL DISTRIBUTION WIDTH 13.2 % (11.5-15.2)
[2016-12-21 05:11] LABS: CALCULATED OXYGEN SATURATION 92 % (92-95); O2 CONCENTRATIION 40 % (0-100)
[2016-12-21 05:18] LABS: ANION GAP 10 mEq/L (8-16); CALCIUM 8.5 mg/dL (8.5-10.4); CARBON DIOXIDE 22 mEq/l (22-31); CHLORIDE 107 mEq/L (97-110); CREATININE 1.3 mg/dL (0.7-1.3); GLOMERULAR FILTRATION RATE 59; GLUCOSE 127 mg/dL (70-100); POTASSIUM 4.4 mEq/L (3.5-5.2); SODIUM 139 mEq/L (134-144)
[2016-12-21] MEDS: HEPARIN 5,000 UNIT/0.5 ML SYR SC SCH ×3 (06:09→21:49)
[2016-12-21] MEDS: fentaNYL 100 MCG/2 ML INJ IVP PRN ×5 (06:27→19:21)
[2016-12-21] MEDS ORDERED: ALBUMIN 5% 500 ML IV ONE ×2 (06:30→12:30)
[2016-12-21] MEDS ORDERED: DOPamine/DEXTROSE/250 ML BAG IV ONE (07:11)
[2016-12-21] MEDS: ceFAZolin 3 GM in D5W 100 ML IV SCH ×3 (07:17→21:49)
--- NOTE | 2016-12-21 07:43 | SOAPPROG ---
SOAP Progress Note Assessment/Plan: POD #1 CABGx3 (CHACON-LAD, SVG-circ, SVG-PDA), left-sided Su-Maze with AtriClip to DWAYNE, EVH to open SVG harvest left thigh Unstable angina with severe 3VD s/p CABGx3 - Wean dopamine as tolerated for MAPs 65 - ASA/Eliquis for graft thromboprophylaxis - AL/FC to remain - CTs to suction for + air leak Paroxysmal atrial fibrillation s/p left-sided Su-Maze with AtriClip to DWAYNE - Post-op SR - Eliquis for thromboprophylaxis Acute blood loss anemia with coagulopathy - Stable s/p 1U platelets and 2U FFP Metabolic syndrome - Hospitalist consult pending for pre-diabetic management (HgbA1c 7.1) - Anticipate mobility issues d/t morbid obesity - PT/OT ordered Subjective: c/o incisional pain. Difficult to take deep breaths. Objective: Vital Signs Temp Pulse Resp BP Pulse Ox 37.3 C 87 16 91/42 L 95 12/21/16 05:00 12/21/16 07:00 12/21/16 07:00 12/21/16 07:00 12/21/16 07:00 Laboratory Results 12/21/16 04:45 12/21/16 04:45 12/20/16 12/21/16 12/22/16 05:59 05:59 05:59 Intake Total 1228 Output Total 2415 Balance -1187 Physical Exam - Physical Exam General Appearance: alert, mild distress, obese EENT: No scleral icterus (R), No scleral icterus (L) Respiratory: No respiratory distress Cardiac/Chest: regular rate, rhythm Abdomen: non-tender, soft, distended Skin: normal color, warm/dry Extremities: pedal edema Neuro/Psych: no motor/sensory deficits, alert, normal mood/affect, oriented x 3 ICD10 Worksheet Patient Problems: Problems Problem Status Onset Acute blood loss anemia Acute Atrial fibrillation, transient Acute Chest pain Acute Coronary artery disease Acute S/P CABG x 3 Acute S/P ablation of atrial fibrillation Acute
[2016-12-21] MEDS: ASPIRIN 81 MG CHEWABLE TAB PO SCH (09:00)
[2016-12-21] MEDS ORDERED: NALOXONE HCL 0.4 MG/ML INJ IVP PRN (09:04)
[2016-12-21] MEDS ORDERED: KETOROLAC 30 MG/1 ML SDV IVP ONE (09:07)
[2016-12-21] MEDS: HYDROmorphONE/DILAUDID 6 MG/30 ML PCA IV PRN ×2 (09:23→16:50)
[2016-12-21] MEDS: SENNOSIDES/DOCUSATE SODIUM TAB PO SCH ×2 (09:40→20:47)
[2016-12-21] MEDS: MUPIROCIN 2% 22 GM OINT NS SCH ×2 (09:40→20:54)
[2016-12-21] MEDS ORDERED: ALBUMIN 5% 500 ML BOTTLE IV ONE (11:53)
[2016-12-21] MEDS ORDERED: INSULIN LISPRO 100 UNIT/ML SC SCH (12:00)
--- NOTE | 2016-12-21 15:55 | POSTANESTH ---
Post Anesthetic Evaluation Cardiovascular Status: Normal, Stable Respiratory Status: Tx Decrease in SpO2 Level of Consciousness/Mental Status: Alert and Oriented Pain Control: Adequate, Prn Tx Ordered Nausea/Vomiting Control: Adequate, Prn Tx Ordered Complications Possibly Related to Anesthesia: None Noted
--- NOTE | 2016-12-21 17:13 | HOSPPROG ---
Hospitalist Progress Note Assessment/Plan: assessment: 46-year-old male presents with unstable angina in the setting of severe multivessel coronary artery disease complicated by new diagnosis of diabetes mellitus type 2 Plan: 1. Diabetes mellitus type 2. new diagnosis, evidenced by hemoglobin A1c of 7.1% , glucose range has been 127 to 183, placed on insulin drip postoperatively and weaned off today -discussed diagnosis of diabetes with patient, counseled him regarding medication management, lifestyle modifications -patient is averse to needles and is nervous about injecting insulin -given that his hemoglobin A1c is relatively low, the patient may be able to effectively manage his diabetes initially with oral agents -will initiate metformin 500 mg twice daily beginning tomorrow morning once the patient is eating more consistently -will continue to cover with insulin sliding scale in the interim with a.c. and HS dosing - recheck renal function in a.m. to ensure that metformin is safe 2. Acute blood loss anemia. Under the management of the cardiothoracic surgery service 3. Paroxysmal atrial fibrillation. Continue Eliquis, per CT surgery 4. Morbid obesity. BMI of 43, increase patient's risk of complications Hospital Medicine service will continue to consult in this patient's daily care for diabetes management. Subjective: Counseled the patient extensively about the new diagnosis of diabetes, discussing medications and lifestyle management Objective: Vital Signs Temp Pulse Resp BP Pulse Ox 37.1 C 91 18 111/65 93 12/21/16 16:00 12/21/16 17:00 12/21/16 17:00 12/21/16 17:00 12/21/16 17:00 Laboratory Results 12/21/16 04:45 12/21/16 04:45 12/20/16 12/21/16 12/22/16 05:59 05:59 05:59 Intake Total 1228 Output Total 4527 3967 Balance -4824 -1462 - Time Spent With Patient Time Spent with Patient: greater than 35 minutes Time Spent with Patient: Greater than 35 minutes spent on this patients care, greater than 50% of time spent counseling, educating, and coordinating care regarding the above mentioned plan. - Physical Exam Constitutional: obese, uncomfortable, No not in pain ( mid chest) Cardiovascular: regular rate and rhythym, no murmur, rub, or gallop Respiratory: other ( unable to take deep inspiration secondary to anterior chest pain), No expiratory wheeze, No inspiratory crackles, No bronchial breath sounds Gastrointestinal: normoactive bowel sounds, soft, non-tender abdomen, no palpable masses Neurologic: AAOx3 Psychiatric: interacting appropriately, not anxious, not encephalopathic, thought process linear ICD10 Worksheet Patient Problems: Problems Problem Status Onset Acute blood loss anemia Acute S/P ablation of atrial fibrillation Acute Atrial fibrillation, transient Acute S/P CABG x 3 Acute Coronary artery disease Acute Chest pain Acute
[2016-12-21] MEDS: INSULIN LISPRO 100 UNIT/ML SC SCH ×2 (17:50→22:58)
[2016-12-21 18:18] LABS: POTASSIUM 4.3 mEq/L (3.5-5.2)
[2016-12-21] MEDS: APIXABAN 5 MG TAB PO SCH (20:09)
[2016-12-21 20:58] LABS: POTASSIUM 4.4 mEq/L (3.5-5.2)
[2016-12-22] MEDS: fentaNYL 100 MCG/2 ML INJ IVP PRN (02:09)
[2016-12-22] MEDS: ceFAZolin 3 GM in D5W 100 ML IV SCH (05:12)
[2016-12-22 05:20] LABS: % IMMATURE GRANULYOCYTES 0.5 % (0.0-1.1); ABSOLUTE IMMATURE GRANULOCYTES 0.05 10^3/uL (0.00-0.10); ADD DIFF? NO; ADD MORPH? NO; ADD SCAN? NO; ATYPICAL LYMPHOCYTE FLAG 0 (0-99); FRAGMENT RBC FLAG 0 (0-99); HEMATOCRIT 27.8 % (40.0-51.0); HEMOGLOBIN 9.6 g/dL (13.7-17.5); LEFT SHIFT FLG 40 (0-99); LIPEMIA HEMOLYSIS FLAG 90 (0-99); MEAN CELL HEMOGLOBIN 32.1 pg (27.9-34.1); MEAN CELL HEMOGLOBIN CONCENTR. 34.5 g/dL (32.4-36.7); MEAN PLATELET VOLUME 10.1 fL (8.7-11.7); PLATELET CLUMPS FLAG 0 (0-99); PLATELET COUNT 118 10^3/uL (150-400); RED BLOOD CELL COUNT 2.99 10^6/uL (4.40-6.38); RED CELL DISTRIBUTION WIDTH 13.5 % (11.5-15.2)
[2016-12-22 05:40] LABS: ANION GAP 7 mEq/L (8-16); CALCIUM 7.9 mg/dL (8.5-10.4); CARBON DIOXIDE 26 mEq/l (22-31); CHLORIDE 105 mEq/L (97-110); GLOMERULAR FILTRATION RATE > 60; GLUCOSE 143 mg/dL (70-100); POTASSIUM 4.3 mEq/L (3.5-5.2); SODIUM 138 mEq/L (134-144)
[2016-12-22] MEDS: HEPARIN 5,000 UNIT/0.5 ML SYR SC SCH (06:41)
--- NOTE | 2016-12-22 08:10 | SOAPPROG ---
SOAP Progress Note Assessment/Plan: POD #2 CABGx3 (CHACON-LAD, SVG-Circ, SVG-PDA), left-sided Su-Maze with AtriClip to DWAYNE, EVH to open SVG harvest left thigh Unstable angina with severe 3VD s/p CABGx3 - ASA/Eliquis for graft thromboprophylaxis - AL/FC out, CT to bulb suction, PW wrapped - CTs to suction for + air leak Paroxysmal atrial fibrillation s/p left-sided Su-Maze with AtriClip to DWAYNE - Post-op SR - Eliquis for thromboprophylaxis Acute blood loss anemia with coagulopathy - Stable s/p 1U platelets and 2U FFP Metabolic syndrome, pre-diabetes - Hospitalist consult appreciated - Metformin started, pt counseled - PT/OT for mobility issues d/t morbid obesity Subjective: Pain better than yesterday. No appetite. Objective: Vital Signs Temp Pulse Resp BP Pulse Ox 37.7 C 86 16 126/79 H 95 12/22/16 05:22 12/22/16 06:43 12/22/16 06:43 12/22/16 06:43 12/22/16 06:43 Laboratory Results 12/22/16 05:00 12/22/16 05:00 12/21/16 12/22/16 12/23/16 05:59 05:59 05:59 Intake Total 1228 2509 Output Total 2415 2935 Balance -1187 -426 Physical Exam - Physical Exam General Appearance: WD/WN, alert, no apparent distress, obese EENT: No scleral icterus (R), No scleral icterus (L) Neck: normal inspection Respiratory: No respiratory distress Cardiac/Chest: regular rate, rhythm Abdomen: non-tender, soft Skin: normal color, warm/dry Extremities: pedal edema (Trace) Neuro/Psych: no motor/sensory deficits, alert, normal mood/affect, oriented x 3 ICD10 Worksheet Patient Problems: Problems Problem Status Onset Acute blood loss anemia Acute Atrial fibrillation, transient Acute Chest pain Acute Coronary artery disease Acute S/P CABG x 3 Acute S/P ablation of atrial fibrillation Acute
[2016-12-22] MEDS: ASPIRIN 81 MG CHEWABLE TAB PO SCH (09:21)
[2016-12-22] MEDS: SENNOSIDES/DOCUSATE SODIUM TAB PO SCH ×2 (09:22→21:28)
[2016-12-22] MEDS: APIXABAN 5 MG TAB PO SCH ×2 (09:22→21:27)
[2016-12-22] MEDS: metFORMIN HCL 500 MG TAB PO SCH ×2 (09:23→18:28)
[2016-12-22] MEDS: INSULIN LISPRO 100 UNIT/ML SC SCH ×4 (09:23→23:53)
[2016-12-22] MEDS: MUPIROCIN 2% 22 GM OINT NS SCH ×2 (09:26→21:34)
[2016-12-22] MEDS: HYDROmorphONE/DILAUDID 4 MG TAB PO PRN (09:49)
[2016-12-22] MEDS: KETOROLAC 30 MG/1 ML SDV IVP PRN (11:52)
[2016-12-22] MEDS: PANTOPRAZOLE SODIUM 40 MG TAB PO SCH (12:35)
--- NOTE | 2016-12-22 12:53 | WOCRNPDOC ---
WOCRN Advanced Assessment Note - Skin Integrity Problem, Advanced Assess Left Upper Gluteal Cleft/ Left Lower Sacrum Pressure Injury Dressing Type: Open to Air Exudate Amount: None Exudate Characteristic(s): None Rubi Wound Tissue: Blanching, Intact Rubi Wound Swelling: None Wound Bed Color: Purple, Red Site Measurement - Head-to-Toe Length X Width X Depth (cm): [id number] Pressure Injury Stage: Deep Tissue Injury (DTI) Pressure Injury Present on Admit: No Skin Integrity Problem Comment: Area of ecchymotic tissue noted over L upper gluteal cleft/ L lower sacrum, consistent in appearance w/ a suspected deep tissue injury. Despite patient's larger body habitus, his anatomy is such that this part of his body is over a bony prominence. Nursing documented this injury and put in for a wound care consult after patient was admitted to ICU after a prolonged surgery. Presently the wound is dark purple medially, w/ fading redness noted circumferentially. Skin is intact over site, and patient denies any pain when tissue palpated. Initiated pressure-relieving interventions, including turns side to side q2, pressure-relieving support surfaces, and protective barrier cream over site. Nursing advised to off-load this site continuously. Wound care will continue to follow this wound as it evolves, and will see the patient again on 12/25.
[2016-12-22] MEDS: ONDANSETRON 4 MG/2 ML VIAL IVP PRN (13:33)
--- NOTE | 2016-12-22 13:54 | PDINTPN ---
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 No AF currently. Nausea: Limited PO since surgery. Obstructive and Central Sleep Apnea: On ASV, with good compliance and control of respiratory events per patient. Anemia: Hgb stable last 24 hours, no significant bleeding apparent. Hyperglycemia: BSs mid-100s with limited PO. Plan: Advance diet as tolerated. Increase activity. Continue to use ASV nightly. 12/22/16 13:57 Subjective: Slept poorly last night, despite using ASV, which he attributes to pain/ discomfort. Poor appetite, had nausea with first bites today. Tired from walking with therapy today. Objective: Vital Signs Temp Pulse Resp BP Pulse Ox 37.7 C 90 21 H 119/64 90 L 12/22/16 05:22 12/22/16 13:00 12/22/16 13:00 12/22/16 13:00 12/22/16 13:00 Laboratory Results 12/22/16 05:00 12/22/16 05:00 12/21/16 12/22/16 12/23/16 05:59 05:59 05:59 Intake Total 1228 2509 Output Total 2415 2935 730 Balance -1187 -426 -730 CXR: Hypoventilation. Similar to yesterday. Images reviewed. Physical Exam - Physical Exam General Appearance: alert, no apparent distress EENT: normal ENT inspection Neck: normal inspection Respiratory: lungs clear, normal breath sounds Cardiac/Chest: regular rate, rhythm, No edema Abdomen: normal bowel sounds, non-tender, soft Skin: warm/dry Extremities: normal inspection Neuro/Psych: alert, normal mood/affect, oriented x 3 ICD10 Worksheet Patient Problems: Problems Problem Status Onset Acute blood loss anemia Acute Atrial fibrillation, transient Acute Chest pain Acute Coronary artery disease Acute S/P CABG x 3 Acute S/P ablation of atrial fibrillation Acute
--- NOTE | 2016-12-22 14:43 | HOSPPROG ---
Hospitalist Progress Note Assessment/Plan: assessment: 46-year-old male presents with unstable angina in the setting of severe multivessel coronary artery disease complicated by new diagnosis of diabetes mellitus type 2 Plan: 1. Diabetes mellitus type 2. new diagnosis, evidenced by hemoglobin A1c of 7.1% , FBG 143 today -given that his hemoglobin A1c is relatively low, the patient may be able to effectively manage his diabetes initially with oral agents -will initiate metformin 500 mg twice daily once patient is less nauseated and consistently eating -will continue to cover with insulin sliding scale in the interim with a.c. and HS dosing -renal fxn safe for metformin 2. Constipation. Has not had BM since surgery, taking stool softener, recommend advancing to laxatives tomorrow if no BM 3. Morbid obesity. BMI of 43, increase patient's risk of complications Hospital Medicine service will continue to consult in this patient's daily care for diabetes management. Subjective: Patient uncomfortable with some chest discomfort, ongoing nausea, no bowel movement Objective: Vital Signs Temp Pulse Resp BP Pulse Ox 37.7 C 88 16 133/66 H 90 L 12/22/16 05:22 12/22/16 14:00 12/22/16 14:00 12/22/16 14:00 12/22/16 14:00 Laboratory Results 12/22/16 05:00 12/22/16 05:00 12/21/16 12/22/16 12/23/16 05:59 05:59 05:59 Intake Total 1228 2509 Output Total 2415 2935 730 Balance -1187 -426 -730 - Physical Exam Constitutional: no apparent distress, obese, uncomfortable, No not in pain Cardiovascular: regular rate and rhythym, no murmur, rub, or gallop, edema ( Trace bilateral lower extremities) Respiratory: other (Shallow breath secondary to anterior chest discomfort), No expiratory wheeze, No inspiratory crackles, No bronchial breath sounds Gastrointestinal: other (Obese and mildly distended abdomen), No normoactive bowel sounds (Hypoactive bowel sounds), No tenderness, No guarding Skin: other (No erythema around his wounds, no induration, mild bleeding left inner thigh along incision site, no ecchymoses) Neurologic: AAOx3, sensation intact bilaterally Psychiatric: interacting appropriately, not anxious, not encephalopathic, thought process linear ICD10 Worksheet Patient Problems: Problems Problem Status Onset Acute blood loss anemia Acute S/P ablation of atrial fibrillation Acute Atrial fibrillation, transient Acute S/P CABG x 3 Acute Coronary artery disease Acute Chest pain Acute
--- NOTE | 2016-12-22 14:56 | GCON ---
[f rep st] CONSULTATION PULMONARY/CRITICAL CARE CONSULTATION DATE OF CONSULTATION: 12/21/2016 REFERRING PHYSICIAN: Cliff Lema DO REASON FOR REFERRAL: Evaluation and management of anemia, hypoxemia, and sleep apnea. HISTORY: The patient is a 46-year-old man with a known history of early coronary artery disease, st atus post PA at the age of 31 and stenting in 2000. These were found to be occluded several years a go, with collaterals. He was admitted on 12/19 with diaphoresis and shortness of breath, as well as some left-sided chest pressure. He was seen by Cardiology, who found 3-vessel disease and referred him for coronary artery bypass grafting, which was performed yesterday by Dr. Lema. The patient h ad very small distal targets. A Su-Maze procedure was performed due to history of paroxysmal atria l fibrillation. The patient was extubated this morning without difficulty, and complains of signifi cant chest pain at the sternal site. PAST MEDICAL HISTORY: 1. Morbid obesity. 2. Sleep apnea, obstructive and central. The patient has been treated with ASV and he reports that he has excellent control and uses his ASV nightly. MEDICATIONS: At the time of admission include Zyrtec, Plavix, Nitrostat, Lipitor, Coreg, aspirin, a nd Altace. ALLERGIES: None. SOCIAL HISTORY: The patient does not smoke or drink. He lives with his . 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 FAMILY HISTORY: Positive for coronary artery disease. REVIEW OF SYSTEMS: A 10-point review of systems adds nothing to the history of present illness. PHYSICAL EXAMINATION: GENERAL: The patient is awake, alert, and in no acute distress. VITAL SIGNS : His blood pressure is 118/71 with a heart rate of 89. He is afebrile. Oxygen saturations are 96 % on 10 L of oxygen via ASV. HEENT: Normocephalic and atraumatic. No icterus. NECK: No adenopat hy. Trachea is midline. CHEST: Clear to auscultation. CARDIAC: Regular rate and rhythm without murmur. ABDOMEN: Soft, nontender. Bowel sounds are present. EXTREMITIES: No clubbing, cyanosis, or edema. NEURO: The patient is a bit groggy, but awakened to voice and is oriented. He has good strength in all extremities and no apparent sensory deficits. LABORATORY DATA: A chemistry group shows a creatinine of 1.4, up from 1.1 at admission. Blood gluc ose is 141. Hemoglobin is 9.9, down from 12.2. Platelet count is 115. Arterial blood gas prior to extubation showed a pH of 7.39 with a pO2 of 64, CO2 of 38, and a bicarbonate of 24 on 40% oxygen. A chest x-ray shows hypoventilatory changes. Images reviewed. ASSESSMENT: 1. Coronary artery disease, status post coronary artery bypass graft. 2. Paroxysmal atrial fibrillation, status post Su-Maze procedure. The patient has no atrial fibri llation currently. 3. Obstructive and central sleep apnea. The patient has ASV, which he uses nightly and reports goo d compliance and efficacy, with an AHI that is normal, less than 1, on machine readouts. 4. Anemia. This is likely due to the patient's expected perioperative blood loss. 5. Hyperglycemia. The patient's blood sugars are in the mid 100s. RECOMMENDATIONS: 1. Use ASV nightly, adding oxygen as needed. 2. Follow hemoglobin. 3. Use IV insulin to control blood sugars. /[id number]/MODL
[2016-12-22] MEDS: METOCLOPRAMIDE 10 MG/2 ML VIAL IVP PRN (21:38)
[2016-12-23 04:27] LABS: % IMMATURE GRANULYOCYTES 0.8 % (0.0-1.1); ABSOLUTE IMMATURE GRANULOCYTES 0.09 10^3/uL (0.00-0.10); ABSOLUTE NRBC COUNT 0.03 10^3/uL (0-0.01); ADD DIFF? NO; ADD MORPH? NO; ADD SCAN? NO; ATYPICAL LYMPHOCYTE FLAG 0 (0-99); FRAGMENT RBC FLAG 0 (0-99); HEMATOCRIT 26.7 % (40.0-51.0); HEMOGLOBIN 9.2 g/dL (13.7-17.5); LEFT SHIFT FLG 10 (0-99); LIPEMIA HEMOLYSIS FLAG 90 (0-99); MEAN CELL HEMOGLOBIN 32.4 pg (27.9-34.1); MEAN CELL HEMOGLOBIN CONCENTR. 34.5 g/dL (32.4-36.7); MEAN PLATELET VOLUME 9.8 fL (8.7-11.7); NRBC-AUTO% 0.3 % (0.0-0.2); PLATELET CLUMPS FLAG 0 (0-99); PLATELET COUNT 113 10^3/uL (150-400); RED BLOOD CELL COUNT 2.84 10^6/uL (4.40-6.38); RED CELL DISTRIBUTION WIDTH 13.6 % (11.5-15.2)
[2016-12-23 04:41] LABS: ANION GAP 6 mEq/L (8-16); CALCIUM 7.9 mg/dL (8.5-10.4); CARBON DIOXIDE 28 mEq/l (22-31); CHLORIDE 102 mEq/L (97-110); GLOMERULAR FILTRATION RATE > 60; GLUCOSE 120 mg/dL (70-100); POTASSIUM 4.3 mEq/L (3.5-5.2); SODIUM 136 mEq/L (134-144)
[2016-12-23] MEDS: ACETAMINOPHEN 325 MG TAB PO PRN (05:49)
[2016-12-23] MEDS: METOCLOPRAMIDE 10 MG/2 ML VIAL IVP PRN (06:41)
--- NOTE | 2016-12-23 07:38 | SOAPPROG ---
SOAP Progress Note Assessment/Plan: Assessment: POD#3 CABGx3 (CHACON-LAD, SV-LCX, SV-PDA), left-sided Su-Maze + AtriClip LLAA, EVH to open SVG harvest left thigh. Rt thigh vein exposure. Sx severe CAD - s/p CABGx3. Hemodynamically stable early postop course. Secondary prevention with baby ASA, BB as allowed by BP, and statin when eating well. To resume adjunctive Plavix for small and diffusely diseased coros once off Eliquis. Paroxysmal atrial fibrillation - s/p left-sided Su-Maze with AtriClip exclusion of DWAYNE. Holding SR early postop. Antithrombotic prophylaxis with Eliquis; duration as per Maze protocol. Acute expected blood loss anemia with coagulopathy - Exacerbated by preop Plavix. Stable s/p 1U platelets and 2U FFP. VTE prophylaxis with ASA/Eliquis. Metabolic syndrome - BMI > 40. Diabetes by preop A1c of 7.1%. Hospitalist consult obtained. Postop hyperglycemia managed with insulin gtt, transitioning to prandial/SSI/OHA as per IM. BENIGNO - Controlled on ASV. Home device in use. Postop pain and nausea - Exacerbated by habitus and chest tubes. Pain controlled with Dilaudid MEDICAL PHYSICS PROFESSOR. Secondary nausea. Transition to orals and multimodal analgesia in progress. Anticipate reduced narc need/decr nausea once tubes out and mobility improved. Plan: TCPW and chest tubes removed. Stop Dilaudid MEDICAL PHYSICS PROFESSOR. Cont oral dilaudid and prn Toradol. Scheduled reglan x 24hrs. Inc activity and pulm toilet. Full liquid diet. AAT. Hold Metformin until oral intake improved. Tx to PCU later today. 12/23/16 07:38 Subjective: Hanging in there. Comfortable at rest on MEDICAL PHYSICS PROFESSOR. Apologetic for low pain tolerance. Yet to eat more than jello. Yet to walk much. Objective: Vital Signs Temp Pulse Resp BP Pulse Ox 38.6 C H 85 20 131/61 H 969 H 12/23/16 04:00 12/23/16 07:00 12/23/16 07:00 12/23/16 07:00 12/23/16 07:00 Laboratory Results 12/23/16 04:15 12/23/16 04:15 12/22/16 12/23/16 12/24/16 05:59 05:59 05:59 Intake Total 2509 2484 160 Output Total 2935 2485 Balance -426 -1 160 Stable HR, rhythm and BP. Balanced I/Os. CTOP at removal criteria. CXR-> Hypoventilation w bibasilar atelectasis. No PTX, pulm vasc congestion, or undrained effusions. Labs as expected. Physical Exam - Physical Exam General Appearance: alert, no apparent distress Respiratory: lungs clear (grossly), other (Blakes x 3 to bulb suction, serosang drainage. All removed without incident.) Cardiac/Chest: regular rate, rhythm, other (Sternum grossly stable. Sternotomy CDI. Vwire removed without difficulty.) Abdomen: normal bowel sounds, non-tender, soft Skin: warm/dry Extremities: swelling (1+ gen), other (Bilateral venotomies clean and intact. Scant serous ooze along left thigh.) ICD10 Worksheet Patient Problems: Problems Problem Status Onset Acute blood loss anemia Acute Atrial fibrillation, transient Acute Chest pain Acute Coronary artery disease Acute S/P CABG x 3 Acute S/P ablation of atrial fibrillation Acute
[2016-12-23] MEDS: INSULIN LISPRO 100 UNIT/ML SC SCH ×4 (08:55→21:23)
[2016-12-23] MEDS ORDERED: FUROSEMIDE 20 MG/2 ML VIAL IVP ONE (09:00)
[2016-12-23] MEDS: PANTOPRAZOLE SODIUM 40 MG TAB PO SCH (09:07)
[2016-12-23] MEDS: APIXABAN 5 MG TAB PO SCH ×2 (09:07→20:21)
[2016-12-23] MEDS: SENNOSIDES/DOCUSATE SODIUM TAB PO SCH ×2 (09:07→20:22)
[2016-12-23] MEDS: ASPIRIN 81 MG CHEWABLE TAB PO SCH (09:07)
[2016-12-23] MEDS: KETOROLAC 30 MG/1 ML SDV IVP PRN ×2 (09:08→21:23)
[2016-12-23] MEDS: CETIRIZINE 10 MG TAB PO SCH (09:16)
[2016-12-23] MEDS: metFORMIN HCL 500 MG TAB PO SCH ×3 (09:37→18:50)
[2016-12-23] MEDS: METOCLOPRAMIDE 10 MG/2 ML VIAL IVP SCH ×3 (09:43→18:50)
[2016-12-23] MEDS: HYDROmorphONE/DILAUDID 4 MG TAB PO PRN ×3 (09:51→20:22)
[2016-12-23] MEDS ORDERED: HYDROmorphONE/DILAUDID 2 MG TAB PO PRN (13:00)
[2016-12-23] MEDS ORDERED: metFORMIN HCL 500 MG TAB ONE (13:40)
--- NOTE | 2016-12-23 14:34 | HOSPPROG ---
Hospitalist Progress Note Assessment/Plan: assessment: 46-year-old male presents with unstable angina in the setting of severe multivessel coronary artery disease complicated by new diagnosis of diabetes mellitus type 2 Plan: 1. Diabetes mellitus type 2. New diagnosis, evidenced by hemoglobin A1c of 7.1% , FBG 120 today, ranged up to 160 o/n -given that his hemoglobin A1c is relatively low, the patient may be able to effectively manage his diabetes initially with oral agents -patient yet to eat solids and has not had metformin as yet, encouraged patient to take a dose today with either lunch or dinner -will continue to cover with insulin sliding scale in the interim with a.c. and HS dosing -renal fxn safe for metformin -RN to arrange for educator to visit patient prior to DC 2. Constipation. Has not had BM since surgery, taking stool softener, recommend advancing to laxatives today 3. Morbid obesity. BMI of 43, increase patient's risk of complications 4. Atelectasis. Acute, present on CXR, patient using [facility] service will continue to consult in this patient's daily care for diabetes management. Subjective: patient reports he has not had a bowel movement yet, had a smoothie for breakfast Objective: Vital Signs Temp Pulse Resp BP Pulse Ox 37.6 C 80 20 112/53 L 93 12/23/16 12:00 12/23/16 12:00 12/23/16 12:00 12/23/16 12:00 12/23/16 12:00 Laboratory Results 12/23/16 04:15 12/23/16 04:15 12/22/16 12/23/16 12/24/16 05:59 05:59 05:59 Intake Total 2501 2482 160 Output Total 9299 2485 Balance -426 -1 160 - Physical Exam Constitutional: no apparent distress, not in pain, obese, uncomfortable Cardiovascular: regular rate and rhythym, no murmur, rub, or gallop, edema ( 1+ bilateral lower extremities) Respiratory: reduced air movement ( bilateral bases), No expiratory wheeze, No inspiratory crackles, No bronchial breath sounds Gastrointestinal: normoactive bowel sounds, soft, non-tender abdomen, no palpable masses, other ( obese) Neurologic: AAOx3 Psychiatric: interacting appropriately, not anxious, not encephalopathic, thought process linear ICD10 Worksheet Patient Problems: Problems Problem Status Onset Acute blood loss anemia Acute S/P ablation of atrial fibrillation Acute Atrial fibrillation, transient Acute S/P CABG x 3 Acute Coronary artery disease Acute Chest pain Acute
[2016-12-23] MEDS ORDERED: POTASSIUM CL 10 MEQ TAB PO ONE (18:15)
[2016-12-23] MEDS: CARVEDILOL 3.125 MG TAB PO SCH (18:51)
[2016-12-23] MEDS: ONDANSETRON DISINTEGRATING 4 MG TAB PO PRN (20:21)
[2016-12-23] MEDS: ATORVASTATIN CALCIUM 40 MG TAB PO SCH (21:23)
[2016-12-24] MEDS: METOCLOPRAMIDE 10 MG/2 ML VIAL IVP SCH (00:08)
[2016-12-24] MEDS: ONDANSETRON DISINTEGRATING 4 MG TAB PO PRN (05:21)
[2016-12-24] MEDS: HYDROmorphONE/DILAUDID 4 MG TAB PO PRN ×2 (05:21→18:48)
[2016-12-24 05:32] LABS: % IMMATURE GRANULYOCYTES 0.9 % (0.0-1.1); ABSOLUTE IMMATURE GRANULOCYTES 0.08 10^3/uL (0.00-0.10); ABSOLUTE NRBC COUNT 0.07 10^3/uL (0-0.01); ADD DIFF? NO; ADD MORPH? NO; ADD SCAN? NO; ATYPICAL LYMPHOCYTE FLAG 0 (0-99); FRAGMENT RBC FLAG 0 (0-99); HEMATOCRIT 26.2 % (40.0-51.0); HEMOGLOBIN 8.9 g/dL (13.7-17.5); LEFT SHIFT FLG 10 (0-99); LIPEMIA HEMOLYSIS FLAG 90 (0-99); MEAN CELL HEMOGLOBIN 32.1 pg (27.9-34.1); MEAN CELL VOLUME 94.6 fL (81.5-99.8); MEAN PLATELET VOLUME 10.1 fL (8.7-11.7); NRBC-AUTO% 0.8 % (0.0-0.2); PLATELET CLUMPS FLAG 10 (0-99); PLATELET COUNT 144 10^3/uL (150-400); RED BLOOD CELL COUNT 2.77 10^6/uL (4.40-6.38); RED CELL DISTRIBUTION WIDTH 13.5 % (11.5-15.2)
[2016-12-24 06:08] LABS: ANION GAP 5 mEq/L (8-16); CARBON DIOXIDE 29 mEq/l (22-31); CHLORIDE 102 mEq/L (97-110); GLOMERULAR FILTRATION RATE > 60; GLUCOSE 108 mg/dL (70-100); POTASSIUM 4.4 mEq/L (3.5-5.2); SODIUM 136 mEq/L (134-144)
[2016-12-24] MEDS: KETOROLAC 30 MG/1 ML SDV IVP PRN ×3 (06:10→21:31)
--- NOTE | 2016-12-24 08:19 | SOAPPROG ---
SOAP Progress Note Assessment/Plan: POD #4 CABGx3 (CHACON-LAD, SVG-Circ, SVG-PDA), left-sided Su-Maze with AtriClip to DWAYNE, EVH to open SVG harvest left thigh, right thigh vein exposure Unstable angina with severe 3VD s/p CABGx3 - ASA/BB/statin - ASA/Eliquis for graft thromboprophylaxis - Plavix to resume once off Eliquis Paroxysmal atrial fibrillation s/p left-sided Su-Maze with AtriClip to DWAYNE - Post-op SR - Eliquis for thromboprophylaxis, duration as per CM protocol Acute blood loss anemia with coagulopathy - Stable s/p 1U platelets and 2U FFP Metabolic syndrome - Hospitalist consult appreciated - Metformin started, pt counseled - PT/OT for mobility issues d/t morbid obesity BENIGNO - Home device in use Subjective: Pain better. Still coughing quite a bit. Using pillow to stabilize sternum. Objective: Vital Signs Temp Pulse Resp BP Pulse Ox 36.6 C 78 20 108/54 L 95 12/24/16 08:00 12/24/16 08:00 12/24/16 08:00 12/24/16 08:00 12/24/16 08:00 Laboratory Results 12/24/16 05:25 12/24/16 05:25 12/23/16 12/24/16 12/25/16 05:59 05:59 05:59 Intake Total 2484 2009 Output Total 2485 1450 10 Balance -1 560 -10 Physical Exam - Physical Exam General Appearance: WD/WN, alert, no apparent distress, obese EENT: No scleral icterus (R), No scleral icterus (L) Neck: normal inspection Respiratory: No respiratory distress Cardiac/Chest: regular rate, rhythm Abdomen: non-tender, soft Skin: normal color, warm/dry Extremities: other (left thigh open SVG harvest site with serous drainage), No pedal edema Neuro/Psych: no motor/sensory deficits, alert, normal mood/affect, oriented x 3 ICD10 Worksheet Patient Problems: Problems Problem Status Onset Acute blood loss anemia Acute Atrial fibrillation, transient Acute Chest pain Acute Coronary artery disease Acute S/P CABG x 3 Acute S/P ablation of atrial fibrillation Acute
[2016-12-24] MEDS: INSULIN LISPRO 100 UNIT/ML SC SCH ×4 (08:26→21:35)
[2016-12-24] MEDS: metFORMIN HCL 500 MG TAB PO SCH ×2 (08:27→18:48)
[2016-12-24] MEDS: APIXABAN 5 MG TAB PO SCH ×2 (08:28→21:22)
[2016-12-24] MEDS: SENNOSIDES/DOCUSATE SODIUM TAB PO SCH ×2 (08:28→21:22)
[2016-12-24] MEDS: PANTOPRAZOLE SODIUM 40 MG TAB PO SCH (08:28)
[2016-12-24] MEDS: CARVEDILOL 3.125 MG TAB PO SCH ×2 (08:28→18:48)
[2016-12-24] MEDS: ASPIRIN 81 MG CHEWABLE TAB PO SCH (08:28)
[2016-12-24] MEDS: CETIRIZINE 10 MG TAB PO SCH (08:28)
--- NOTE | 2016-12-24 15:29 | HOSPPROG ---
Hospitalist Progress Note Assessment/Plan: assessment: 46-year-old male presents with unstable angina in the setting of severe multivessel coronary artery disease complicated by new diagnosis of diabetes mellitus type 2 Plan: 1. Diabetes mellitus type 2. New diagnosis, evidenced by hemoglobin A1c of 7.1% , FBG 108 today, ranged up to 170 o/n -given that his hemoglobin A1c is relatively low, the patient will be able to effectively manage his diabetes initially with oral agents, recommend metformin 500mg bid at discharge -counseling regarding diabetic and cardiac diets provided to patient and -recommend that he establish care at [facility] w/ Dr. Cruz, get dietary referral at that time for ongoing counseling 2. Constipation. Has had BM, cont stool softener 3. Morbid obesity. BMI of 43, increase patient's risk of complications 4. Atelectasis. Acute, present on CXR, patient using [facility] service will sign off, d/w CT Surgery. Subjective: counseled the patient's regarding the nuances between cardiac and diabetic diet, the important role of weight loss in diabetic management, and my anticipation that he will require oral agents in the short term Objective: Vital Signs Temp Pulse Resp BP Pulse Ox 37.7 C 89 24 H 139/70 H 99 12/24/16 15:03 12/24/16 15:03 12/24/16 15:03 12/24/16 15:03 12/24/16 15:03 Laboratory Results 12/24/16 05:25 12/24/16 05:25 12/23/16 12/24/16 12/25/16 05:59 05:59 05:59 Intake Total 2489 3794 640 Output Total 2489 1450 10 Balance -1 088 073 - Time Spent With Patient Time Spent with Patient: greater than 25 minutes Time Spent with Patient: Greater than 25 minutes spent on this patients care, greater than 50% of time spent counseling, educating, and coordinating care regarding the above mentioned plan. - Physical Exam Constitutional: obese, uncomfortable ( with coughing and deep breath) Cardiovascular: regular rate and rhythym, no murmur, rub, or gallop, edema ( 1+ bilateral lower extremity) Respiratory: reduced air movement ( secondary to anterior chest pain), No expiratory wheeze, No inspiratory crackles, No bronchial breath sounds Gastrointestinal: normoactive bowel sounds, soft, non-tender abdomen, no palpable masses, other ( obese) Neurologic: AAOx3 Psychiatric: interacting appropriately, not anxious, not encephalopathic, thought process linear ICD10 Worksheet Patient Problems: Problems Problem Status Onset Acute blood loss anemia Acute S/P ablation of atrial fibrillation Acute Atrial fibrillation, transient Acute S/P CABG x 3 Acute Coronary artery disease Acute Chest pain Acute
[2016-12-24] MEDS: ATORVASTATIN CALCIUM 40 MG TAB PO SCH (21:22)
[2016-12-24] MEDS: RAMIPRIL 2.5 MG CAP PO SCH (21:23)
[2016-12-24] MEDS: HYDROmorphONE/DILAUDID 2 MG TAB PO PRN (23:20)
[2016-12-25] MEDS: KETOROLAC 30 MG/1 ML SDV IVP PRN (07:35)
--- NOTE | 2016-12-25 07:47 | SOAPPROG ---
SOAP Progress Note Assessment/Plan: Assessment: POD#5 CABGx3 (CHACON-LAD, SV-LCX, SV-PDA), left-sided Su-Maze + AtriClip LLAA, EVH to open SVG harvest left thigh. Rt thigh vein exposure. Sx severe CAD - s/p CABGx3. Hemodynamically stable early postop course. Tubes and wires out. Secondary prevention with baby ASA, BB, and statin. To resume adjunctive Plavix for small and diffusely diseased coros once off Eliquis. Paroxysmal atrial fibrillation - s/p left-sided Su-Maze with AtriClip exclusion of DWAYNE. Holding SR early postop. AF prophylaxis with BB. Antithrombotic prophylaxis with Eliquis; duration as per Maze protocol. Acute expected blood loss anemia with coagulopathy - Exacerbated by preop Plavix. Stable s/p 1U platelets and 2U FFP. VTE prophylaxis with ASA/Eliquis. Metabolic syndrome - BMI > 40. Diabetes by preop A1c of 7.1%. Hospitalist consult obtained. Postop hyperglycemia managed with insulin gtt, transitioning to SSI/OHA as per IM. BENIGNO - Controlled on ASV. Home device in use. Plan: Downgrade anlgesia to Oxycodone IR and prn ibuprofen. Increase activity and pulm toilet. Wean O2. Cont coreg 3.125 mg BID. Cont ramipril 2.5 mg hs. Lasix 40 mg x 1 today. Dispo - Anticipate home tomorrow +/- [facility]. 12/25/16 07:46 Subjective: Coughing spells with IS. Beginning to mobilize phlegm. Improving bed/chair transfers. Improving appetite. No further urinary retention. Ambulatory capacity remains somewhat poor. Objective: Vital Signs Temp Pulse Resp BP Pulse Ox 37.3 C 89 24 H 110/64 90 L 12/25/16 07:35 12/25/16 07:35 12/25/16 07:35 12/25/16 07:35 12/25/16 07:35 Laboratory Results 12/24/16 05:25 12/24/16 05:25 12/24/16 12/25/16 12/26/16 05:59 05:59 05:59 Intake Total 20090 Output Total 1450 680 220 Balance 560 310 -220 Stable HR, rhythm and BP. Sufficient BP for ACEI last noc. Decreasing suppl O2 needs. Balanced I/Os. Overall +2 kg. Improved glycemic control. Physical Exam - Physical Exam General Appearance: alert, no apparent distress Respiratory: crackles (bases) Cardiac/Chest: regular rate, rhythm, other (Sternum grossly stable. Sternotomy CDI.) Abdomen: non-tender, soft Skin: warm/dry Extremities: swelling (1+), other (RLE venot CDI. LLE venot intact, oozy from several spots) ICD10 Worksheet Patient Problems: Problems Problem Status Onset Acute blood loss anemia Acute Atrial fibrillation, transient Acute Chest pain Acute Coronary artery disease Acute S/P CABG x 3 Acute S/P ablation of atrial fibrillation Acute
[2016-12-25] MEDS: oxyCODONE IR 5 MG TAB PO PRN ×4 (07:49→22:52)
[2016-12-25] MEDS ORDERED: FUROSEMIDE 40 MG TAB PO ONE ×2 (09:00→15:00)
[2016-12-25] MEDS ORDERED: POTASSIUM CL 10 MEQ TAB PO ONE ×2 (09:00→15:00)
[2016-12-25] MEDS: INSULIN LISPRO 100 UNIT/ML SC SCH ×4 (09:01→21:29)
[2016-12-25] MEDS: CETIRIZINE 10 MG TAB PO SCH (09:05)
[2016-12-25] MEDS: CARVEDILOL 3.125 MG TAB PO SCH ×2 (09:05→18:37)
[2016-12-25] MEDS: APIXABAN 5 MG TAB PO SCH ×2 (09:05→20:44)
[2016-12-25] MEDS: SENNOSIDES/DOCUSATE SODIUM TAB PO SCH ×2 (09:05→20:44)
[2016-12-25] MEDS: PANTOPRAZOLE SODIUM 40 MG TAB PO SCH (09:06)
[2016-12-25] MEDS: ASPIRIN 81 MG CHEWABLE TAB PO SCH (09:06)
[2016-12-25] MEDS: metFORMIN HCL 500 MG TAB PO SCH ×2 (09:06→18:37)
--- NOTE | 2016-12-25 10:21 | WOCRNPDOC ---
WOCRN Advanced Assessment Note - Skin Integrity Problem, Advanced Assess Left Upper Gluteal Cleft/ Left Lower Sacrum Pressure Injury Dressing Type: Open to Air Exudate Amount: None Site Measurement - Head-to-Toe Length X Width X Depth (cm): 5.5x3x0 Pressure Injury Stage: Deep Tissue Injury (DTI) Skin Integrity Problem Comment: Wound has not improved. It continues to present as a deep tissue injury, however it has not opened either. Wound care will round again Sunday 12/31.
[2016-12-25] MEDS: IBUPROFEN 600 MG TAB PO PRN ×2 (14:46→22:51)
[2016-12-25] MEDS: RAMIPRIL 2.5 MG CAP PO SCH (20:43)
[2016-12-25] MEDS: guaiFENesin 600 MG TAB.ER PO SCH (20:44)
[2016-12-25] MEDS: ATORVASTATIN CALCIUM 40 MG TAB PO SCH (20:45)
[2016-12-26] MEDS: ACETAMINOPHEN 325 MG TAB PO PRN (03:39)
[2016-12-26] MEDS: oxyCODONE IR 5 MG TAB PO PRN ×3 (03:39→20:59)
[2016-12-26 03:47] LABS: HEMOGLOBIN 8.6 g/dL (13.7-17.5)
[2016-12-26 03:54] LABS: POTASSIUM 4.3 mEq/L (3.5-5.2)
[2016-12-26] MEDS: CETIRIZINE 10 MG TAB PO SCH (08:06)
[2016-12-26] MEDS: guaiFENesin 600 MG TAB.ER PO SCH ×2 (08:06→20:50)
[2016-12-26] MEDS: SENNOSIDES/DOCUSATE SODIUM TAB PO SCH ×2 (08:06→20:50)
[2016-12-26] MEDS: PANTOPRAZOLE SODIUM 40 MG TAB PO SCH (08:07)
[2016-12-26] MEDS: ASPIRIN 81 MG CHEWABLE TAB PO SCH (08:07)
[2016-12-26] MEDS: APIXABAN 5 MG TAB PO SCH (08:08)
[2016-12-26] MEDS: INSULIN LISPRO 100 UNIT/ML SC SCH ×3 (08:08→21:03)
[2016-12-26] MEDS: metFORMIN HCL 500 MG TAB PO SCH ×2 (08:08→20:50)
[2016-12-26] MEDS: CARVEDILOL 3.125 MG TAB PO SCH (08:08)
[2016-12-26] MEDS ORDERED: POTASSIUM CL 20 MEQ TAB PO SCH ×2 (09:00→15:00)
[2016-12-26] MEDS ORDERED: FUROSEMIDE 40 MG TAB PO SCH (09:00)
--- NOTE | 2016-12-26 09:27 | SOAPPROG ---
SOAP Progress Note Assessment/Plan: POD #6 CABGx3 (CHACON-LAD, SVG-Circ, SVG-PDA), left-sided Su-Maze with AtriClip to DWAYNE, EVH to open SVG harvest left thigh, right thigh vein exposure Unstable angina with severe 3VD s/p CABGx3 - ASA/BB/statin - ASA/Eliquis for graft thromboprophylaxis - Plavix to resume once off Eliquis for coronary thromboprophylaxis Sternal dehiscence secondary to large body habitus - For re-wiring at in AM - will pre-op Paroxysmal atrial fibrillation s/p left-sided Su-Maze with AtriClip to DWAYNE - Post-op SR - Eliquis for thromboprophylaxis, duration as per CM protocol Acute blood loss anemia with coagulopathy - Stable s/p 1U platelets and 2U FFP Left Upper Gluteal Cleft/Left Lower Sacrum Pressure Deep Tissue Injury - Mgmt as per wound care Metabolic syndrome - Hospitalist consult appreciated - Metformin started, pt counseled - PT/OT for mobility issues d/t morbid obesity BENIGNO - Home device in use Subjective: Denies CP/SOB. Chest and leg wounds have been oozing. Objective: Vital Signs Temp Pulse Resp BP Pulse Ox 37.4 C 100 19 134/66 H 96 12/26/16 07:55 12/26/16 07:55 12/26/16 07:55 12/26/16 07:55 12/26/16 07:55 Laboratory Results 12/26/16 03:30 12/26/16 03:30 12/25/16 12/26/16 12/27/16 05:59 05:59 05:59 Intake Total 990 1650 Output Total 680 2730 Balance 310 -1080 Physical Exam - Physical Exam General Appearance: WD/WN, alert, no apparent distress EENT: No scleral icterus (R), No scleral icterus (L) Neck: normal inspection Respiratory: No respiratory distress Cardiac/Chest: regular rate, rhythm, other (mid sternal wound with bloody drainage / wound intact) Abdomen: non-tender, soft, No distended Skin: normal color, warm/dry Extremities: pedal edema, other (left thigh open SVG harvest with serous ooze / wound intact ) Neuro/Psych: no motor/sensory deficits, alert, normal mood/affect, oriented x 3 ICD10 Worksheet Patient Problems: Problems Problem Status Onset Acute blood loss anemia Acute Atrial fibrillation, transient Acute Chest pain Acute Coronary artery disease Acute S/P CABG x 3 Acute S/P ablation of atrial fibrillation Acute
[2016-12-26] MEDS ORDERED: POTASSIUM CL 20 MEQ TAB PO ONE (10:25)
[2016-12-26] MEDS: FUROSEMIDE 40 MG/4 ML VIAL IVP SCH ×2 (11:13→15:24)
[2016-12-26] MEDS: IBUPROFEN 600 MG TAB PO PRN ×2 (11:26→20:59)
[2016-12-26 12:49] LABS: HEMATOCRIT 27.2 % (40.0-51.0); HEMOGLOBIN 9.6 g/dL (13.7-17.5)
--- NOTE | 2016-12-26 13:49 | WOCRNPDOC ---
[facility] Advanced Assessment Note - Skin Integrity Problem, Advanced Assess Medial Chest Surgical Wound/Incision Dressing Type: Gauze Dressing Description: Clean/Dry, Intact Closure Description: Not Approximated Exudate Amount: Excessive Exudate Color: Reddish/Yellow Exudate Characteristic(s): Serosanguinous Integumentary Issue Intervention: Dressing Changed Betsy Wound Swelling: Mild Wound Bed Color: Red Site Measurement - Head-to-Toe Length X Width X Depth (cm): 1x0.5xunknown Skin Integrity Problem Comment: Cleaned betsy wound skin with washcloth and water. 4 inch drain appliace cut just to fit around open area that is draining from dehisced midline sternal incision. Placed appliance. Oralia MARIEE in room for care. Superabsorbant optilock also left in case appliance fails and it needs to be replaced. Wound care will no follow this wound.
[2016-12-26 17:01] LABS: POTASSIUM 4.5 mEq/L (3.5-5.2)
[2016-12-26] MEDS: ATORVASTATIN CALCIUM 40 MG TAB PO SCH (20:50)
[2016-12-26] MEDS: POTASSIUM CL 20 MEQ TAB PO SCH (21:06)
[2016-12-26] MEDS ORDERED: VANCOMYCIN HCL/NORMAL SALINE 250 ML IV ONE (21:42)
[2016-12-27] MEDS: INSULIN LISPRO 100 UNIT/ML SC SCH ×5 (00:26→21:46)
[2016-12-27 04:35] LABS: HEMATOCRIT 24.5 % (40.0-51.0); HEMOGLOBIN 8.5 g/dL (13.7-17.5); MEAN CELL HEMOGLOBIN 32.6 pg (27.9-34.1); MEAN CELL HEMOGLOBIN CONCENTR. 34.7 g/dL (32.4-36.7); MEAN CELL VOLUME 93.9 fL (81.5-99.8); RED BLOOD CELL COUNT 2.61 10^6/uL (4.40-6.38); RED CELL DISTRIBUTION WIDTH 13.8 % (11.5-15.2)
[2016-12-27 04:49] LABS: ANION GAP 5 mEq/L (8-16); CALCIUM 7.8 mg/dL (8.5-10.4); CARBON DIOXIDE 29 mEq/l (22-31); CHLORIDE 98 mEq/L (97-110); CREATININE 0.9 mg/dL (0.7-1.3); GLOMERULAR FILTRATION RATE > 60; GLUCOSE 105 mg/dL (70-100); POTASSIUM 4.2 mEq/L (3.5-5.2); SODIUM 132 mEq/L (134-144)
[2016-12-27] MEDS ORDERED: ceFAZolin 3 GM in D5W 100 ML IV ONE (06:00)
[2016-12-27] MEDS ORDERED: MIDAZOLAM 2 MG/2 ML VIAL IVP ONE (06:59)
--- NOTE | 2016-12-27 06:59 | PDANEPAE ---
ANE History of Present Illness sternal wire removal ANE Past Medical History - Cardiovascular History Hx Hypertension: Yes Hx Arrhythmias: Yes Hx Chest Pain: Yes Hx Coronary Artery / Peripheral Vascular Disease: Yes Hx CHF / Valvular Disease: No Hx Palpitations: No - Pulmonary History Hx COPD: No Hx Asthma/Reactive Airway Disease: No Hx Recent Upper Respiratory Infection: No Hx Oxygen in Use at Home: No Hx Sleep Apnea: Yes Sleep Apnea Screening Result - Last Documented: Positive - Endocrine History Hx Diabetes: Yes ANE Review of Systems - Exercise capacity Exercise capacity: limited by disability ANE Patient History - Allergies Allergies/Adverse Reactions: No Known Allergies Allergy (Unverified 12/19/16 00:31) - Home Medications Home Medications: Aspirin [Aspirin 81mg (*)] 162 mg PO DAILY 12/19/16 [Last Taken 12/18/16] Atorvastatin Calcium [Lipitor 80 mg] 80 mg PO HS 12/19/16 [Last Taken 12/18/16] Carvedilol [Coreg (*)] 6.25 mg PO BIDMEAL 12/19/16 [Last Taken 12/18/16 18:00] Cetirizine [ZyrTEC 10 mg (*)] 10 mg PO DAILY 12/19/16 [Last Taken 12/18/16] Clopidogrel Bisulfate [Plavix (*)] 75 mg PO DAILY 12/19/16 [Last Taken 12/18/16] Nitroglycerin [Nitrostat 0.4 mg (*)] 0.4 mg SL Q5M PRN 12/19/16 [Last Taken 21:00 2 tabs] Ramipril [Altace 2.5mg (*)] 2.5 mg PO DAILY 12/19/16 [Last Taken 12/18/16] - NPO status NPO Since - Liquids (Date): 12/27/16 NPO Since - Liquids (Time): 00:00 NPO Since - Solids (Date): 12/27/16 NPO Since - Solids (Time): 00:00 - Smoking Hx Smoking Status: Never smoked ANE Labs/Vital Signs - Labs Result Diagrams: 12/27/16 04:25 12/27/16 04:25 - Vital Signs Blood Pressure: 140/77 Heart Rate: 96 Respiratory Rate: 14 O2 Sat (%): 94 Height: 180.34 cm Weight: 139.7 kg ANE Physical Exam - Airway Neck exam: decreased ROM Mallampati Score: Class 3 Mouth exam: normal dental/mouth exam - Pulmonary Pulmonary: no respiratory distress - Cardiovascular Cardiovascular: regular rate and rhythym - ASA Status ASA Status: IV ANE Anesthesia Plan Anesthesia Plan: general endotracheal anesthesia
[2016-12-27] MEDS ORDERED: fentaNYL 100 MCG/2 ML INJ ONE ×5 (07:07→09:11)
[2016-12-27] MEDS ORDERED: ONDANSETRON 4 MG/2 ML VIAL ONE (07:07)
[2016-12-27] MEDS ORDERED: LIDOCAINE 2% 100 MG/5 ML SYR ONE (07:07)
[2016-12-27] MEDS ORDERED: ROCURONIUM 50 MG/5 ML VIAL ONE (07:07)
[2016-12-27] MEDS ORDERED: PROPOFOL 200 MG/20 ML VIAL ONE ×2 (07:07→07:17)
[2016-12-27] MEDS ORDERED: DEXAMETHASONE 4 MG/ML VIAL ONE (07:07)
[2016-12-27] MEDS ORDERED: MIDAZOLAM 2 MG/2 ML VIAL ONE (07:09)
[2016-12-27] MEDS ORDERED: SUCCINYLCHOLINE CHLORIDE*ANESTHESIA ONLY*200 MG/10 ML SYR IVP ONE (07:10)
[2016-12-27] MEDS: SENNOSIDES/DOCUSATE SODIUM TAB PO SCH ×2 (07:35→20:22)
[2016-12-27] MEDS: CETIRIZINE 10 MG TAB PO SCH (07:35)
[2016-12-27] MEDS: POTASSIUM CL 20 MEQ TAB PO SCH ×2 (07:35→15:05)
[2016-12-27] MEDS: PANTOPRAZOLE SODIUM 40 MG TAB PO SCH (07:35)
[2016-12-27] MEDS: ASPIRIN 81 MG CHEWABLE TAB PO SCH (07:35)
[2016-12-27] MEDS: guaiFENesin 600 MG TAB.ER PO SCH ×2 (07:35→20:23)
[2016-12-27] MEDS: metFORMIN HCL 500 MG TAB PO SCH ×2 (07:36→19:27)
[2016-12-27] MEDS ORDERED: MEPERIDINE 25 MG/ML SYR IVP PRN (07:53)
[2016-12-27] MEDS ORDERED: OXYCODONE/APAP 5/325 TAB PO PRN (07:53)
[2016-12-27] MEDS ORDERED: NALOXONE HCL 0.4 MG/ML INJ IVP PRN ×2 (07:53→08:59)
[2016-12-27] MEDS ORDERED: LABETALOL HCL 50 MG/10 ML SYR IVP PRN (07:53)
[2016-12-27] MEDS ORDERED: PROMETHAZINE HCL 25 MG/ML INJ IVP PRN (07:53)
[2016-12-27] MEDS ORDERED: ACETAMINOPHEN 500 MG TAB PO PRN (07:53)
[2016-12-27] MEDS ORDERED: fentaNYL 100 MCG/2 ML INJ IVP PRN (07:53)
[2016-12-27] MEDS ORDERED: HYDROCODONE/APAP 5/325 TAB PO PRN (07:53)
[2016-12-27] MEDS ORDERED: SUGAMMADEX SODIUM 200 MG/2 ML VIAL IVP ONE (08:00)
--- NOTE | 2016-12-27 08:00 | POSTANESTH ---
Post Anesthetic Evaluation Cardiovascular Status: Similar to Pre-Op Cond Respiratory Status: Similar to Pre-op Cond. Level of Consciousness/Mental Status: Can Participate in Eval, Mildly Sleepy, Arousable Pain Control: Inadeq, Add Tx Required Nausea/Vomiting Control: Adequate, Prn Tx Ordered Complications Possibly Related to Anesthesia: None Noted
[2016-12-27] MEDS ORDERED: MINERAL OIL 10 ML VIAL ONE (08:27)
--- NOTE | 2016-12-27 08:43 | POSTOPPROG ---
Post Op Note Date of Operation: 12/27/16 Surgeon: Cliff Lema Trauma Surgeon: Sebastien Anesthesiologist: Susy Anesthesia: GET(General Endotracheal) Pre-op Diagnosis: sternal dehisence Procedure: sternal rewire Findings: sternum intact, bands/wires fractured Inf/Abcess present in the surg proc area at time of surgery?: No EBL: Minimal Drains: Other (2 blakes)
[2016-12-27] MEDS ORDERED: KETOROLAC 30 MG/1 ML SDV ONE (08:54)
[2016-12-27] MEDS ORDERED: fentaNYL 75 MCG PATCH TD ONE ×2 (09:03→20:00)
[2016-12-27] MEDS ORDERED: IPRATROPIUM/ALBUTEROL 3 ML DEYVIAL IH PRN (09:13)
[2016-12-27] MEDS: fentaNYL 100 MCG/2 ML INJ IVP PRN ×2 (09:14→09:25)
[2016-12-27] MEDS ORDERED: HYDROmorphONE/DILAUDID 1 MG/ML SYR IVP PRN ×2 (09:46→10:20)
[2016-12-27] MEDS: HYDROmorphONE/DILAUDID 1 MG/ML SYR IVP PRN ×2 (09:49→10:01)
[2016-12-27] MEDS ORDERED: HYDROmorphONE/DILAUDID 1 MG/ML SYR ONE (09:51)
--- NOTE | 2016-12-27 13:07 | GOP ---
[f rep st] OPERATIVE REPORT DATE OF OPERATION: 12/27/2016 SURGEON: Cliff Lema DO INSTRUMENT INSTALLER: Jenny Crowe, FREYA ANESTHESIOLOGIST: Brandon Miranda MD PREOPERATIVE DIAGNOSIS: Sternal dehiscence, sterile. POSTOPERATIVE DIAGNOSIS: Sternal dehiscence, sterile. PROCEDURE PERFORMED: Sternal rewire. FINDINGS: INDICATIONS: The patient was morbidly obese, and did not protect sternum. Was advised, and ended u p dehiscing his sternum with persistent serous drainage and right pleural effusion. DESCRIPTION OF PROCEDURE: He was brought to the operating room, prepped and draped after intubation . Opening the skin incision revealed complete separation of both sternal edges. The sternal bands had actually completely failed with a zip-tie like mechanism being destroyed. The sternum remained intact. The wires were pulled through both superiorly and inferiorly. We then spent some time drai conor 2 L of pleural fluid, irrigating the chest. Graft appeared to be open. We did not open the pe ricardium. We then, after warm irrigation, closed the sternum with a weave, and combined [id number] sternal wires and sternal bands. The sternum appeared to be healthy and stable pos t rewiring. The fascia was closed in standard fashion. Skin and subcu were closed with spike. D ressings were applied. Patient was returned to recovery in stable condition. /[id number]/MODL
[2016-12-27] MEDS: FUROSEMIDE 40 MG/4 ML VIAL IVP SCH (15:04)
[2016-12-27] MEDS: ceFAZolin 2 GM/DEXTROSE 100 ML IV SCH ×2 (15:05→22:19)
[2016-12-27] MEDS: KETOROLAC 30 MG/1 ML SDV IVP SCH ×2 (15:05→20:23)
[2016-12-27] MEDS: HYDROmorphONE/DILAUDID 2 MG TAB PO PRN (19:27)
[2016-12-27] MEDS: ATORVASTATIN CALCIUM 40 MG TAB PO SCH (20:22)
[2016-12-28] MEDS: KETOROLAC 30 MG/1 ML SDV IVP SCH (02:31)
[2016-12-28] MEDS: HYDROmorphONE/DILAUDID 2 MG TAB PO PRN (05:30)
[2016-12-28 05:43] LABS: HEMOGLOBIN 8.4 g/dL (13.7-17.5); MEAN CELL HEMOGLOBIN 31.7 pg (27.9-34.1); MEAN CELL HEMOGLOBIN CONCENTR. 33.6 g/dL (32.4-36.7); MEAN CELL VOLUME 94.3 fL (81.5-99.8); RED BLOOD CELL COUNT 2.65 10^6/uL (4.40-6.38)
[2016-12-28 06:08] LABS: ANION GAP 8 mEq/L (8-16); CALCIUM 7.7 mg/dL (8.5-10.4); CARBON DIOXIDE 27 mEq/l (22-31); CHLORIDE 98 mEq/L (97-110); CREATININE 0.9 mg/dL (0.7-1.3); GLOMERULAR FILTRATION RATE > 60; GLUCOSE 114 mg/dL (70-100); POTASSIUM 4.9 mEq/L (3.5-5.2); SODIUM 133 mEq/L (134-144)
--- NOTE | 2016-12-28 08:22 | SOAPPROG ---
SOAP Progress Note Assessment/Plan: Assessment: POD#8 CABGx3 (CHACON-LAD, SV-LCX, SV-PDA), left-sided Su-Maze + AtriClip LLAA, EVH to open SVG harvest left thigh. Rt thigh vein exposure. POD#1 Sternal restabilization w Bayron mead. Evacuation rt pleural effusion, 1500ml. Sx severe CAD - s/p CABGx3, complicated by sternal dehiscense and symptomatic rt pl effusion. Taken back to OR yest for exploration. All hardware intact but pulled thru. No evidence devascularized soft tissue or bone. No evidence IRAIS. Bone rewired. Skin closed with spike. Dedicated pleural drains inserted. Secondary prevention with baby ASA, BB, and statin resumed. Adjunctive Plavix for small and diffusely diseased coros on hold until off Eliquis. PAF - Holding SR s/p left-sided Su-Maze with AtriClip exclusion of DWAYNE. AF prophylaxis with BB. Antithrombotic prophylaxis with Eliquis x 3 months. Acute expected blood loss anemia with coagulopathy - Exacerbated by preop Plavix. Stable s/p 1U platelets and 2U FFP. VTE prophylaxis with ASA/Eliquis. Supplemental iron x 2 weeks. Metabolic syndrome - Diabetes by preop A1c of 7.1%. Hospitalist consult obtained. Postop hyperglycemia managed with insulin gtt, transitioning to SSI/ OHA as per IM. Excellent glycemic control achieved on Metformin. Morbid obesity - BMI > 40. Sedentary lifestyle with preop gluteal/sacral pressure deep tissue injury. Compromised wound healing early postop. Wound care nurse following. BENIGNO - Controlled on ASV. Home device in use. Plan: Blakes converted to bulb suction. Switch TLC to PL. Resume Eliquis 5 mg BID. Resume Coreg 3.125 mg BID. Cont BID IV lasix. Switch scheduled Toradol to prn ibuprofen. Start FeSO4. Inc activity and wean O2. 12/28/16 07:58 Subjective: Relaxed. As comfortable as ever. Breathing much easier. Coughing less. Only c/o stuffy nose (for which Flonase used successfully in the past). Objective: Vital Signs Temp Pulse Resp BP Pulse Ox 37.3 C 96 21 H 120/72 99 12/28/16 07:14 12/28/16 07:14 12/28/16 07:14 12/28/16 07:14 12/28/16 07:14 Laboratory Results 12/28/16 05:35 12/28/16 05:35 12/27/16 12/28/16 12/29/16 05:59 05:59 05:59 Intake Total 2480 972 650 Output Total 2350 1530 200 Balance 130 -558 450 HR, rhythm and BP stable. Balanced I/Os. CTOP thin, 350ml overnoc. Chest wound dry. CXR-> hypoventilation, mild pulm vasc congestion, small residual rt pl effusion , chest tubes in good position. Labs as expected. Physical Exam - Physical Exam General Appearance: alert, no apparent distress Respiratory: decreased breath sounds (bases), other (Blakes x 2 y-d to pleurovac , thin serosang drainage, +tidal, no air leak. Tubes stripped and converted to bulb suction without incident.) Cardiac/Chest: regular rate, rhythm, other (Sternal dressing CDI) Abdomen: non-tender, soft Skin: warm/dry Extremities: swelling (trace), other (rt thigh venot CDI; left thigh venot clean with intact skin edges. Serous ooze distally near knee, no assoc erythema or induration.) ICD10 Worksheet Patient Problems: Problems Problem Status Onset Acute blood loss anemia Acute Atrial fibrillation, transient Acute Chest pain Acute Coronary artery disease Acute Dehiscence of closure of sternum or sternotomy Acute S/P CABG x 3 Acute ~12/20/16 S/P ablation of atrial fibrillation Acute s/p sternal restabilization Acute ~12/27/16 Metabolic syndrome Chronic Morbid obesity with BMI of 40.0-44.9, adult Chronic
[2016-12-28] MEDS ORDERED: POTASSIUM CL 20 MEQ TAB PO SCH (09:00)
[2016-12-28] MEDS: INSULIN LISPRO 100 UNIT/ML SC SCH ×4 (09:01→21:53)
[2016-12-28] MEDS: PANTOPRAZOLE SODIUM 40 MG TAB PO SCH (09:01)
[2016-12-28] MEDS: ASPIRIN 81 MG CHEWABLE TAB PO SCH (09:02)
[2016-12-28] MEDS: metFORMIN HCL 500 MG TAB PO SCH ×2 (09:02→18:00)
[2016-12-28] MEDS: CETIRIZINE 10 MG TAB PO SCH (09:04)
[2016-12-28] MEDS: SENNOSIDES/DOCUSATE SODIUM TAB PO SCH ×2 (09:04→21:54)
[2016-12-28] MEDS: guaiFENesin 600 MG TAB.ER PO SCH ×2 (09:05→21:55)
[2016-12-28] MEDS: FUROSEMIDE 40 MG/4 ML VIAL IVP SCH (09:06)
[2016-12-28] MEDS: IBUPROFEN 600 MG TAB PO PRN ×2 (09:45→21:53)
[2016-12-28] MEDS: oxyCODONE IR 5 MG TAB PO PRN ×3 (09:46→22:06)
[2016-12-28] MEDS: APIXABAN 5 MG TAB PO SCH ×2 (09:56→21:54)
[2016-12-28] MEDS: FERROUS SULFATE 325 MG TAB PO SCH ×2 (09:56→21:54)
[2016-12-28] MEDS: CARVEDILOL 3.125 MG TAB PO SCH ×2 (09:56→18:01)
[2016-12-28] MEDS ORDERED: FLUTICASONE NASAL 120 SPRAYS/16 GM MDI EACHNARE PRN (10:00)
[2016-12-28] MEDS ORDERED: FUROSEMIDE 100 MG/10 ML VIAL IVP SCH (15:00)
[2016-12-28] MEDS ORDERED: POTASSIUM CL 20 MEQ/15 ML UDCUP PO SCH (16:00)
[2016-12-28] MEDS: FUROSEMIDE 80 MG in D5W 50 ML IV SCH (16:04)
[2016-12-28] MEDS: POTASSIUM CL 20 MEQ TAB PO SCH ×2 (16:05→21:55)
[2016-12-28] MEDS: ACETAMINOPHEN 325 MG TAB PO PRN (16:14)
[2016-12-28] MEDS: ATORVASTATIN CALCIUM 40 MG TAB PO SCH (21:55)
[2016-12-29 04:40] LABS: HEMATOCRIT 24.3 % (40.0-51.0); HEMOGLOBIN 8.2 g/dL (13.7-17.5)
[2016-12-29 04:47] LABS: POTASSIUM 4.9 mEq/L (3.5-5.2)
[2016-12-29] MEDS: ACETAMINOPHEN 325 MG TAB PO PRN (05:46)
[2016-12-29] MEDS: oxyCODONE IR 5 MG TAB PO PRN ×3 (05:46→20:17)
--- NOTE | 2016-12-29 08:38 | SOAPPROG ---
SOAP Progress Note Assessment/Plan: Assessment: POD#9 CABGx3 (CHACON-LAD, SV-LCX, SV-PDA), left-sided Su-Maze + AtriClip LLAA, EVH to open SVG harvest left thigh. Rt thigh vein exposure. POD#2 Sternal restabilization w Bayron mead. Evacuation rt pleural effusion, 1500ml. Sx severe CAD - s/p CABGx3, complicated by sternal dehiscense and symptomatic rt pl effusion. Taken back to OR for exploration. All hardware intact but pulled thru. No evidence devascularized soft tissue or bone. No evidence IRAIS. Bone rewired. Skin closed with spike. Dedicated pleural drains inserted. Secondary prevention with baby ASA, BB, and statin resumed. Adjunctive Plavix for small and diffusely diseased coros on hold until off Eliquis. PAF - Holding SR s/p left-sided Su-Maze with AtriClip exclusion of DWAYNE. AF prophylaxis with BB. Antithrombotic prophylaxis with Eliquis x 3 months. Acute expected blood loss anemia with coagulopathy - Exacerbated by preop Plavix. Stable s/p 1U platelets and 2U FFP. VTE prophylaxis with ASA/Eliquis. Supplemental iron x 2 weeks. Metabolic syndrome - Diabetes by preop A1c of 7.1%. Hospitalist consult obtained. Postop hyperglycemia managed with insulin gtt, transitioning to SSI/ OHA as per IM. Excellent glycemic control achieved on Metformin. Morbid obesity - BMI > 40. Sedentary lifestyle with preop gluteal/sacral pressure deep tissue injury. Compromised wound healing early postop. Wound care nurse following. BENIGNO - Controlled on ASV. Home device in use. Plan: Left pleural samantha removed. Cont Eliquis 5 mg BID. Cont Coreg 3.125 mg BID. Cont BID IV lasix x 1 more day. Resume Ramipril tonight if SBP > 120. Cont inc activity and aggressive pulm toilet. Stop accuchecks if ok w IM. Dispo - Anticipate rt pleural drain out tomorrow and home Fri12/29/16 08:34 Subjective: Feels well. Improving mobility. Satisfactory analgesia. Hopeful for home soon. Objective: Vital Signs Temp Pulse Resp BP Pulse Ox 37.1 C 86 15 129/70 H 97 12/29/16 08:00 12/29/16 08:00 12/29/16 08:00 12/29/16 08:00 12/29/16 08:00 Laboratory Results 12/29/16 03:31 12/29/16 03:31 12/28/16 12/29/16 12/30/16 05:59 05:59 05:59 Intake Total 972 1800 Output Total 1530 2490 Balance -558 -690 Cardioresp status stable. Suppl O2 req down to 2 Lpm. Good response to IV diuresis. - Pending Discharge Pending Discharge Within 48 Hours: Yes Pending Discharge Date: 12/31/16 Pending Discharge Time: 11:00 Physical Exam - Physical Exam General Appearance: alert, no apparent distress Respiratory: crackles (bases), other (blakes x 2 to bulb suction, thin serosang drainage. Left pleural samantha removed without incident) Cardiac/Chest: regular rate, rhythm, other (Sternotomy dressing CDI) Abdomen: non-tender, soft Skin: warm/dry Extremities: swelling (trace dependent), other (Left thigh venotomy actively oozing clear serous fluid. Skin edges remain intact. ) ICD10 Worksheet Patient Problems: Problems Problem Status Onset Acute blood loss anemia Acute Atrial fibrillation, transient Acute Chest pain Acute Coronary artery disease Acute Dehiscence of closure of sternum or sternotomy Acute S/P CABG x 3 Acute ~12/20/16 S/P ablation of atrial fibrillation Acute s/p sternal restabilization Acute ~12/27/16 Metabolic syndrome Chronic Morbid obesity with BMI of 40.0-44.9, adult Chronic
[2016-12-29] MEDS ORDERED: POTASSIUM CL 10 MEQ TAB PO SCH (09:00)
[2016-12-29] MEDS: SENNOSIDES/DOCUSATE SODIUM TAB PO SCH ×2 (09:55→20:05)
[2016-12-29] MEDS: FUROSEMIDE 80 MG in D5W 50 ML IV SCH ×2 (09:55→16:30)
[2016-12-29] MEDS: CARVEDILOL 3.125 MG TAB PO SCH ×2 (09:56→20:07)
[2016-12-29] MEDS: guaiFENesin 600 MG TAB.ER PO SCH ×2 (09:56→20:07)
[2016-12-29] MEDS: metFORMIN HCL 500 MG TAB PO SCH ×2 (09:56→20:07)
[2016-12-29] MEDS: APIXABAN 5 MG TAB PO SCH ×2 (09:56→20:08)
[2016-12-29] MEDS: POTASSIUM CL 20 MEQ TAB PO SCH ×2 (09:56→20:08)
[2016-12-29] MEDS: FERROUS SULFATE 325 MG TAB PO SCH ×2 (09:56→20:08)
[2016-12-29] MEDS: PANTOPRAZOLE SODIUM 40 MG TAB PO SCH (09:56)
[2016-12-29] MEDS: CETIRIZINE 10 MG TAB PO SCH (09:56)
[2016-12-29] MEDS: ASPIRIN 81 MG CHEWABLE TAB PO SCH (09:56)
[2016-12-29] MEDS: INSULIN LISPRO 100 UNIT/ML SC SCH ×4 (09:57→20:25)
[2016-12-29] MEDS: ATORVASTATIN CALCIUM 40 MG TAB PO SCH (20:06)
[2016-12-30 04:59] LABS: HEMATOCRIT 25.2 % (40.0-51.0); HEMOGLOBIN 8.4 g/dL (13.7-17.5); MEAN CELL HEMOGLOBIN 31.1 pg (27.9-34.1); MEAN CELL HEMOGLOBIN CONCENTR. 33.3 g/dL (32.4-36.7); MEAN CELL VOLUME 93.3 fL (81.5-99.8); RED BLOOD CELL COUNT 2.7 10^6/uL (4.40-6.38); RED CELL DISTRIBUTION WIDTH 13.9 % (11.5-15.2)
[2016-12-30 05:13] LABS: ANION GAP 9 mEq/L (8-16); CALCIUM 7.8 mg/dL (8.5-10.4); CARBON DIOXIDE 27 mEq/l (22-31); CHLORIDE 95 mEq/L (97-110); CREATININE 0.9 mg/dL (0.7-1.3); GLOMERULAR FILTRATION RATE > 60; GLUCOSE 95 mg/dL (70-100); POTASSIUM 4.4 mEq/L (3.5-5.2); SODIUM 131 mEq/L (134-144)
--- NOTE | 2016-12-30 07:11 | SOAPPROG ---
SOAP Progress Note Assessment/Plan: Assessment: POD#10 CABGx3 (CHACON-LAD, SV-LCX, SV-PDA), left-sided Su-Maze + AtriClip LLAA, EVH to open SVG harvest left thigh. Rt thigh vein exposure. POD#3 Sternal restabilization w Bayron mead. Evacuation rt pleural effusion, 1500ml. Sx severe CAD - s/p CABGx3, complicated by sternal dehiscence and symptomatic rt pl effusion. Taken back to OR for exploration. All hardware intact but pulled thru. No evidence devascularized soft tissue or bone. No evidence IRAIS. Bone rewired. Skin closed with spike. Dedicated pleural drains inserted. Secondary prevention with baby ASA, BB, and statin resumed. Adjunctive Plavix for small and diffusely diseased coros on hold until off Eliquis. PAF - Holding SR s/p left-sided Su-Maze with AtriClip exclusion of DWAYNE. AF prophylaxis with BB. Antithrombotic prophylaxis with Eliquis x 3 months. Acute expected blood loss anemia with coagulopathy - Exacerbated by preop Plavix. Stable s/p 1U platelets and 2U FFP. VTE prophylaxis with ASA/Eliquis. Supplemental iron x 2 weeks. Metabolic syndrome - Diabetes by preop A1c of 7.1%. Hospitalist consult obtained. Postop hyperglycemia managed with insulin gtt, transitioning to SSI/ OHA as per IM. Excellent glycemic control achieved on Metformin. Morbid obesity - BMI > 40. Sedentary lifestyle with preop gluteal/sacral pressure deep tissue injury. Compromised wound healing early postop. Wound care nurse following. BENIGNO - Controlled on ASV. Home device in use. Plan: Remove rt pleural saravanan later today. Cont Eliquis 5 mg BID. Inc Coreg to home dose of 6.25 mg BID. Cont IV diuresis. Cont inc activity and aggressive pulm toilet. Attempt wean to room air. Dispo - Anticipate home tomorrow. 12/30/16 07:08 Subjective: Feels well. Less nervous about sternum. Satisfactory analgesia. No acute concerns. Objective: Vital Signs Temp Pulse Resp BP Pulse Ox 37.4 C 85 20 125/68 H 98 12/30/16 04:00 12/30/16 04:00 12/30/16 04:00 12/30/16 04:00 12/30/16 04:00 Laboratory Results 12/30/16 04:07 12/30/16 04:07 12/29/16 12/30/16 12/31/16 05:59 05:59 05:59 Intake Total 1800 860 Output Total 2490 3155 800 Balance -690 -2295 -800 Cardioresp status stable. Excellent diuresis with stable renal fx. Chest tube output approaching removal criteria. CXR-> hypoventilation, no residual left pleural effusion, rt basilar atelectasis , rt pl tube in good position - Pending Discharge Pending Discharge Within 24 Hours: Yes Pending Discharge Date: 12/31/16 Pending Discharge Time: 11:00 Physical Exam - Physical Exam General Appearance: alert, no apparent distress Respiratory: crackles (rt base), other (Saravanan to bulb suction, thin serosang drainage) Cardiac/Chest: regular rate, rhythm, other (Sternum grossly stable. Sternal dressing CDI) Abdomen: non-tender, soft Skin: warm/dry Extremities: swelling (1+ gen), other (LLE venot CDI, Rt thigh remains oozy, skin edges intact.) ICD10 Worksheet Patient Problems: Problems Problem Status Onset Acute blood loss anemia Acute Atrial fibrillation, transient Acute Chest pain Acute Coronary artery disease Acute Dehiscence of closure of sternum or sternotomy Acute S/P CABG x 3 Acute ~12/20/16 S/P ablation of atrial fibrillation Acute s/p sternal restabilization Acute ~12/27/16 Metabolic syndrome Chronic Morbid obesity with BMI of 40.0-44.9, adult Chronic
[2016-12-30] MEDS: SENNOSIDES/DOCUSATE SODIUM TAB PO SCH ×2 (07:40→21:11)
[2016-12-30] MEDS: CARVEDILOL 6.25 MG TAB PO SCH ×2 (07:40→18:37)
[2016-12-30] MEDS: metFORMIN HCL 500 MG TAB PO SCH ×2 (07:40→18:48)
[2016-12-30] MEDS: PANTOPRAZOLE SODIUM 40 MG TAB PO SCH (07:41)
[2016-12-30] MEDS: APIXABAN 5 MG TAB PO SCH ×2 (07:41→21:10)
[2016-12-30] MEDS: guaiFENesin 600 MG TAB.ER PO SCH ×2 (07:41→21:11)
[2016-12-30] MEDS: CETIRIZINE 10 MG TAB PO SCH (07:41)
[2016-12-30] MEDS: ASPIRIN 81 MG CHEWABLE TAB PO SCH (07:41)
[2016-12-30] MEDS: POTASSIUM CL 20 MEQ TAB PO SCH ×2 (07:41→21:10)
[2016-12-30] MEDS: FERROUS SULFATE 325 MG TAB PO SCH ×2 (07:41→21:10)
[2016-12-30] MEDS: ONDANSETRON 4 MG/2 ML VIAL IVP PRN (08:59)
[2016-12-30] MEDS ORDERED: TORSEMIDE 20 MG TAB PO SCH (09:00)
[2016-12-30] MEDS: FUROSEMIDE 100 MG/10 ML VIAL IVP SCH ×2 (09:59→17:26)
[2016-12-30] MEDS: ACETAMINOPHEN 325 MG TAB PO PRN (14:47)
--- NOTE | 2016-12-30 16:31 | WOCRNPDOC ---
WOCRN Advanced Assessment Note - Skin Integrity Problem, Advanced Assess Left Upper Gluteal Cleft/ Left Lower Sacrum Pressure Injury Dressing Type: Open to Air Site Measurement - Head-to-Toe Length X Width X Depth (cm): 6.5x4x0 (DTI), 0.3x0.1x0.1 (Stage 2) Pressure Injury Stage: Stage 2, Deep Tissue Injury (DTI) Pressure Injury Present on Admit: No Skin Integrity Problem Comment: Healing deep tissue injury. Area is slowly appearing mottled and is resolving. Small partial thickness opening noted directly over coccyx. Wound care will sign off at this time. Please reconsult prn. No dressings needed. Continue offloading as directed. Melania Santacruz in room for care as well as patient's . All questions answered re: plan of care, and the wound's evolution and outcome.
[2016-12-30] MEDS: TORSEMIDE 20 MG TAB PO SCH (17:02)
[2016-12-30] MEDS: ATORVASTATIN CALCIUM 40 MG TAB PO SCH (21:11)
[2016-12-31 05:46] LABS: POTASSIUM 4.2 mEq/L (3.5-5.2)
[2016-12-31] MEDS: SENNOSIDES/DOCUSATE SODIUM TAB PO SCH (08:14)
[2016-12-31] MEDS: ASPIRIN 81 MG CHEWABLE TAB PO SCH (08:15)
[2016-12-31] MEDS: CETIRIZINE 10 MG TAB PO SCH (08:15)
[2016-12-31] MEDS: guaiFENesin 600 MG TAB.ER PO SCH (08:15)
[2016-12-31] MEDS: APIXABAN 5 MG TAB PO SCH (08:15)
[2016-12-31] MEDS: TORSEMIDE 20 MG TAB PO SCH (08:15)
[2016-12-31] MEDS: POTASSIUM CL 20 MEQ TAB PO SCH (08:15)
[2016-12-31] MEDS: PANTOPRAZOLE SODIUM 40 MG TAB PO SCH (08:15)
[2016-12-31] MEDS: FERROUS SULFATE 325 MG TAB PO SCH (08:16)
[2016-12-31] MEDS: metFORMIN HCL 500 MG TAB PO SCH (08:16)
[2016-12-31] MEDS: CARVEDILOL 6.25 MG TAB PO SCH (08:16)
[2016-12-31 08:17] VITALS: BP 120/65; PULSE 86
[2016-12-31 08:47] VITALS: RESP 17; TEMP 98.5
--- NOTE | 2016-12-31 09:12 | SOAPPROG ---
SOAP Progress Note Assessment/Plan: Assessment: POD#11 CABGx3 (CHACON-LAD, SV-LCX, SV-PDA), left-sided Su-Maze + AtriClip LLAA, EVH to open SVG harvest left thigh. Rt thigh vein exposure. POD#4 Sternal restabilization w Bayron mead. Evacuation rt pleural effusion, 1500ml. Sx severe CAD - s/p CABGx3, complicated by sternal dehiscence and symptomatic rt pl effusion. Taken back to OR for exploration. All hardware intact but pulled thru. No evidence devascularized soft tissue or bone. No evidence IRAIS. Bone rewired. Skin closed with tequila. Pleural drains removed in staggered fashion. Secondary prevention with baby ASA, BB, and statin resumed. Adjunctive Plavix for small and diffusely diseased coros on hold until off Eliquis. PAF - Holding SR s/p left-sided Su-Maze with AtriClip exclusion of DWAYNE. AF prophylaxis with BB. Antithrombotic prophylaxis with Eliquis x 3 months. Acute expected blood loss anemia with coagulopathy - Exacerbated by preop Plavix. Stable s/p 1U platelets and 2U FFP. VTE prophylaxis with ASA/Eliquis. Supplemental iron x 2 weeks. Metabolic syndrome - Diabetes by preop A1c of 7.1%. Hospitalist consult obtained. Postop hyperglycemia managed with insulin gtt, transitioning to SSI/ OHA as per IM. Excellent glycemic control achieved on Metformin. Morbid obesity - BMI > 40. Sedentary lifestyle. Wound care nurse consulted for gluteal/sacral deep tissue injury suspected to be present preop. Gradual improvement with off loading. At high risk of impaired surgical wound healing. Heightened vigilance planned. BENIGNO - Controlled on ASV. Home device in use. Plan: Ok for discharge home. Instructions re diet, meds, activity, f/u and wound care to be reviewed in presence of . 12/31/16 08:09 Subjective: Slept well. +BM. Comfortable going home. Objective: Vital Signs Temp Pulse Resp BP Pulse Ox 36.9 C 86 17 120/65 97 12/31/16 08:00 12/31/16 08:16 12/31/16 08:00 12/31/16 08:16 12/31/16 08:00 Laboratory Results 12/30/16 04:07 12/31/16 04:22 12/30/16 12/31/16 01/01/17 05:59 05:59 05:59 Intake Total 860 1330 Output Total 3155 3450 Balance -2295 -2120 Cardioresp status stable. Suppl O2 down to 1 lpm. RA challenge planned. Excellent diuresis. Leg edema appears to be resolving. CXR -> hypoventilation with bibasilar atelectasis, tiny residual rt pl effusion. Physical Exam - Physical Exam General Appearance: alert, no apparent distress Respiratory: decreased breath sounds (bases) Cardiac/Chest: regular rate, rhythm, other (Sternum grossly stable. Sternotomy CDI. Tequila intact.) Abdomen: non-tender, soft Skin: warm/dry Extremities: swelling (trace -1+ dependent), other (Rt thigh venot CDI, left thigh venot intact, serous ooze distally.) ICD10 Worksheet Patient Problems: Problems Problem Status Onset Acute blood loss anemia Acute Atrial fibrillation, transient Acute Chest pain Acute Coronary artery disease Acute Dehiscence of closure of sternum or sternotomy Acute S/P CABG x 3 Acute ~12/20/16 S/P ablation of atrial fibrillation Acute s/p sternal restabilization Acute ~12/27/16 Metabolic syndrome Chronic Morbid obesity with BMI of 40.0-44.9, adult Chronic
--- NOTE | 2016-12-31 10:56 | PDDCSUM ---
Discharge Summary Discharge Summary: DATE OF ADMISSION: 12/19/16 DATE OF DISCHARGE: 12/31/16 DISPOSITION: Home, self-care PRINCIPAL ADMISSION DIAGNOSIS: Unstable angina PRINCIPAL DISCHARGE DIAGNOSES: 1. Progressive multivessel coronary artery disease 2. Mild carotid atherosclerosis 3. Diabetes mellitus type 2 4. Deep tissue injury left sacrum 5. Status post coronary artery bypass grafting complicated by sternal dehiscence requiring full rewiring. 6. Status post left sided Su Maze ablation of atrial fibrillation with exclusion of left atrial appendage. 7. Postoperative right pleural effusion requiring tube thoracostomy drainage. 8. Acute expected blood loss anemia with mild coagulopathy. HISTORY OF PRESENT ILLNESS: 46 yo morbidly obese male with longstanding CAD, known stent failure, and collateral dependent RCA and LCX flow, admitted with unstable angina. Found to have a new critical stenosis of the mid LAD and referred for surgical revascularization. No associated LVDD, LVSD, or prohibitive neurologic risk. Preop testing notable for a HgbA1c of 7.1%. PERTINENT PAST MEDICAL HISTORY: CAD s/p remote [place] and stents to the RCA and diagonal - maintained on DAPT; Dyslipidemia; PAF; morbid obesity with BMI > 40; chronic lower leg edema; BENIGNO on ASV. MEDICATIONS ON ADMISSION: ASA 162 mg daily, Plavix 75 mg daily, Lipitor 80 mg hs, Coreg 6.25 mg BID, Ramipril 2.5 mg daily, Zyrtec 10 mg daily. ALLERGIES/SENSITIVITIES: NKDA CONSULTANTS: Cardiology (Benedict), CV surgery (Pita), Wound care nurse (Óscar), Pulmonology /critical care (Hiram). PROCEDURES/IMAGIN/22 (Benedict): Left heart catheterization with selective coronary angiography , left ventriculography, and intravascular ultrasound of LAD. Access via left radial artery. 12/19 Carotid ultrasound 12/20 (Pita): Coronary artery bypass grafting x 3 (CHACON-LAD, SV-OM, SV-PDA). Left sided Su Maze procedure using bipolar radiofrequency and cryothermy. AtriClip exclusion of the left atrial appendage. Take down left internal mammary artery. Endoscopic vein exploration bilateral LEs. Conversion to open vein harvest left thigh. 12/27 (iPta): Sternal restabilization with Robicsek weave. Evacuation of 1500 ml right pleural effusion. ABBREVIATED HOSPITAL COURSE BY ACTIVE PROBLEM LIST: 1. Symptomatic severe CAD with preserved LV systolic fx - s/p CABGx3, complicated by sternal dehiscence - attributed to cough and habitus. No significant postop hyperglycemia. Take back exploration negative for devascularized soft tissue or bone. Sternum rewired and skin closed with spike. Secondary prevention with baby ASA, BB, and statin. Adjunctive Plavix for small and diffusely diseased coronaries on hold until off Eliquis. 2. Symptomatic postoperative right pleural effusion - Persistent cough and dyspnea with reaccumulation of moderate sized effusion post initial chest tube removal. Etiology nonspecific, mainly post pleurotomy by intraop appearance during take back. No evidence CHF. No prolonged retention of new chest tube. 2. Hx PAF - Expected to be at high risk of postop recurrence and preemptive left -sided Su-Maze with AtriClip exclusion of DWAYNE done. No postop arrhythmias. AF prophylaxis with BB. Antithrombotic prophylaxis with Eliquis x 3 months. 3. Acute expected blood loss anemia with coagulopathy - Exacerbated by preop Plavix. Stable s/p 1U platelets and 2U FFP. Supplemental iron x 2 weeks. 4. Diabetes by preop A1c of 7.1%. Postop hyperglycemia managed with low dose insulin gtt, transitioning to SSI/OHA as per IM. Excellent glycemic control achieved on Metformin. Outpt monitoring per PCP. 5. Morbid obesity - BMI > 40. Sedentary lifestyle. Chronic dependent edema. Stage 1 decubitus ulcer of left gluteal/sacral area discovered early postop. Gradual improvement with off loading. At high risk of impaired surgical wound healing. Heightened outpt vigilance planned. 6. BENIGNO - Controlled on ASV. Home device in use. DISCHARGE CLINICAL INFORMATION: Sternum grossly stable. Sternotomy CDI, stapled. BLE sutured, +dermabond. LLE venotomy oozy distally near knee. HR 80s. SBP 110s-120s. SpO2 intermittently 83% on RA, correcting to > 91% on 1 lpm. Wt 9 kg below admission at 140.6 kilos. Hgb 8.4, HCT 25.2, Plt 373, Na 131, K 4.2, BUN 25, Cr 0.9 Lipids: TC 191, LDL 137, HDL 31, TG 118. FSBG 100s-130s DISCHARGE MEDICATIONS: As on admission with the following adjustments: Hold Ramipril. Hold Plavix. Decrease ASA to 81 mg while on Eliquis. NEW prescriptions: 1. Eliquis 5 mg BID x 3 months. 2. Torsemide 40 mg BID, or as directed. 3. KlorCon 20mEq BID with Torsemide. 4. Metformin 500 mg BID, or as directed. 5. Oxycodone IR 5 mg one half to two tabs q 4 hrs prn incisional discomfort. 6. Ferrous sulfate 325 mg BID x 12 more days. 7. Oxygen at 1 Lpm continuously, or as directed by SpO2. FOLLOW UP APPOINTMENTS: 1. CV surgery: with Dr Lema at [facility] on 01/03 at 10am. 2. Cardiology: with Dr Mcmullen (or Lavon) at [facility] within 4-6 weeks. Appointment to be established during surgical visit. 3. PCP: with Dr Cruz within 10 days. Diabetic and weight loss management. FOLLOW UP TESTING: CXR prior to surgical appointment.
[2016-12-31 12:24] VITALS: O2SAT 83
== END 2016-12-31 14:27 | disposition home or self-care (01) | DRG 229 ==
LOC: F2W 02:31 → F2N 12-20 13:29 → OBSVTOIN 12-20 19:58 → F2N 12-20 20:00 → F2W 12-23 17:41 → F2N 12-27 10:33 → F2W 12-27 15:51
PROVIDERS: ADMIT Internal Medicine; ATTEND Thoracic Surgery (Cardiothoracic Vascular Surgery)
PROC: B240ZZ3 Ultrasonography of Single Coronary Artery, Intravascular (ICD-10-PCS; 2016-12-19)
PROC: B2111ZZ Fluoroscopy of Multiple Coronary Arteries using Low Osmolar Contrast (ICD-10-PCS; 2016-12-19)
PROC: 4A023N7 Measurement of Cardiac Sampling and Pressure, Left Heart, Percutaneous Approach (ICD-10-PCS; 2016-12-19)
PROC: B2151ZZ Fluoroscopy of Left Heart using Low Osmolar Contrast (ICD-10-PCS; 2016-12-19)
PROC: 02100A9 Bypass Coronary Artery, One Artery from Left Internal Mammary with Autologous Arterial Tissue, Open Approach (ICD-10-PCS; principal; 2016-12-20 11:45)
PROC: 06BQ0ZZ Excision of Left Saphenous Vein, Open Approach (ICD-10-PCS; principal; 2016-12-20 11:45)
PROC: 021109W Bypass Coronary Artery, Two Arteries from Aorta with Autologous Venous Tissue, Open Approach (ICD-10-PCS; principal; 2016-12-20 11:45)
PROC: 02L70ZK Occlusion of Left Atrial Appendage, Open Approach (ICD-10-PCS; principal; 2016-12-20 11:45)
PROC: 5A1221Z Performance of Cardiac Output, Continuous (ICD-10-PCS; principal; 2016-12-20 11:45)
PROC: 02580ZZ Destruction of Conduction Mechanism, Open Approach (ICD-10-PCS; principal; 2016-12-20 11:45)
PROC: 0W990ZZ Drainage of Right Pleural Cavity, Open Approach (ICD-10-PCS; 2016-12-27)
PROC: 0PQ00ZZ Repair Sternum, Open Approach (ICD-10-PCS; 2016-12-27)
DX: I25.110 Atherosclerotic heart disease of native coronary artery with unstable angina pectoris (principal); T82.855D Stenosis of coronary artery stent, subsequent encounter; T81.32XA Disruption of internal operation (surgical) wound, not elsewhere classified, initial encounter; I25.2 Old myocardial infarction; I48.0 Paroxysmal atrial fibrillation; J95.89 Other postprocedural complications and disorders of respiratory system, not elsewhere classified; J90 Pleural effusion, not elsewhere classified; D62 Acute posthemorrhagic anemia; Z79.02 Long term (current) use of antithrombotics/antiplatelets; L89.151 Pressure ulcer of sacral region, stage 1; K59.00 Constipation, unspecified; E66.01 Morbid (severe) obesity due to excess calories; Z68.41 Body mass index [BMI] 40.0-44.9, adult; E78.5 Hyperlipidemia, unspecified; E11.9 Type 2 diabetes mellitus without complications; G47.33 Obstructive sleep apnea (adult) (pediatric); R60.0 Localized edema
CPT/HCPCS: 82947-QW; 97110-GP; 97116-GP; 97161-GP; 97165-GO; 97530-GO; 97530-GP; 97535-GO; C1753; C1769; C1887; G0378; J0153; J0282; J0330; J0690; J1100; J1170; J1265; J1644; J1815; J1885; J1940; J2001; J2150; J2250; J2260; J2370; J2405; J2440; J2597; J2704; J2720; J2765; J2930; J3010; J3370; J7060; P9017; P9035; P9041; Q9967

== ENCOUNTER → 2017-01-03 | Outpatient (CLI) | payer OTHER | LOC: FIMAGING 13:35 | PROVIDERS: ATTEND Physician Assistant Surgical | DX: J90 Pleural effusion, not elsewhere classified (principal); Z98.890 Other specified postprocedural states ==

== ENCOUNTER → 2017-01-14 | Outpatient (CLI) | payer OTHER | LOC: FIMAGING 10:23 | PROVIDERS: ATTEND Thoracic Surgery (Cardiothoracic Vascular Surgery) | DX: Z48.89 Encounter for other specified surgical aftercare (principal); Z98.890 Other specified postprocedural states; J90 Pleural effusion, not elsewhere classified ==

== ENCOUNTER → 2017-01-28 | Outpatient (CLI) | payer OTHER | LOC: FIMAGING 08:34 | PROVIDERS: ATTEND Thoracic Surgery (Cardiothoracic Vascular Surgery) | DX: Z86.79 Personal history of other diseases of the circulatory system (principal); Z95.1 Presence of aortocoronary bypass graft; Z98.890 Other specified postprocedural states ==

== ENCOUNTER → 2017-03-25 | Outpatient (CLI) | payer OTHER | LOC: FIMAGING 09:08 | PROVIDERS: ATTEND Internal Medicine Cardiovascular Disease | DX: J90 Pleural effusion, not elsewhere classified (principal); I51.7 Cardiomegaly; Z95.1 Presence of aortocoronary bypass graft ==

== ENCOUNTER 2018-04-06 03:52 | Emergency (ER) | payer OTHER ==
[2018-04-06 04:29] LABS: PLATELET COUNT 199 10^3/uL (150-400)
--- NOTE | 2018-04-06 04:51 | EDPHY ---
H & P Stated Complaint: WOKE WITH SOB, UNDER TREATMENT FOR URI Time Seen by Provider: 04/06/18 04:04 HPI/ROS: HPI The patient presents with shortness of breath which he noticed about 1.5 hr to presentation upon awakening. He feels like he cannot get a full breath in. His symptoms have been constant and not improved since his arrival in the ED. He says for the last 1 and half weeks he has been feeling not himself, his primary care doctor diagnosed him with an upper respiratory tract infection. He has had a mild cough with this. He has not had any chest pain. He says for the last 3-4 months he has had bradycardia when he has visited with his doctors. He has an appointment with his greeter later today for further evaluation of this. He has a history of sleep apnea and wears CPAP machine at night, which he was wearing tonight. He has a history of a CABG in 2017. REVIEW OF SYSTEMS 10 systems were reviewed and negative with the exception of the elements mentioned in the history of present illness. PMHx: CAD status post CABG, BENIGNO uses CPAP machine Soc Hx: Here with his PHYSICAL General Appearance: Alert, no distress Eyes: Pupils equal and round no pallor or injection ENT, Mouth: Mucous membranes moist Respiratory: There are no retractions, lungs are clear to auscultation Cardiovascular: Regular rate and rhythm Gastrointestinal: Abdomen is soft and non-tender, no masses, bowel sounds normal Neurological: A&O, moves all extremities Skin: Warm and dry, no rashes Musculoskeletal: Neck is supple non tender Extremities: symmetrical, full range of motion, 1+ lower extremity edema which is symmetric Psychiatric: Patient is oriented X 3, there is no agitation Source: Patient Exam Limitations: No limitations - Personal History Current Tetanus/Diphtheria Vaccine: Yes Current Tetanus Diphtheria and Acellular Pertussis (TDAP): Yes - Medical/Surgical History Hx Asthma: No Hx Chronic Respiratory Disease: No Hx Diabetes: Yes Hx Cardiac Disease: Yes Hx Renal Disease: No Hx Cirrhosis: No Hx Alcoholism: No Hx HIV/AIDS: No Hx Splenectomy or Spleen Trauma: No Other PMH: CAD, [place] x2, 6 angiograms & 3 stents - Social History Smoking Status: Never smoked Constitutional: Initial Vital Signs Temperature (C) 36.6 C 04/06/18 03:55 Heart Rate 38 L 04/06/18 03:55 Respiratory Rate 18 04/06/18 03:55 Blood Pressure 151/72 H 04/06/18 03:55 O2 Sat (%) 96 04/06/18 03:55 O2 Delivery Mode Room Air O2 (L/minute) 2 Allergies/Adverse Reactions: No Known Allergies Allergy (Unverified 04/06/18 03:58) Home Medications: Medication Instructions Recorded Atorvastatin Calcium [Lipitor 80 80 mg PO HS 12/19/16 mg] Carvedilol [Coreg (*)] 6.25 mg PO BIDMEAL 12/19/16 Cetirizine [ZyrTEC 10 mg (*)] 10 mg PO DAILY 12/19/16 Nitroglycerin [Nitrostat 0.4 mg 0.4 mg SL Q5M PRN 12/19/16 (*)] Acetaminophen [Tylenol 325mg (*)] 325 - 650 mg PO Q4HRS PRN #0 tab 12/31/16 Aspirin [Aspirin 81mg (*)] 81 mg PO DAILY #0 tab.chew 12/31/16 metFORMIN HCL [Glucophage 500 mg 500 mg PO BIDMEAL #60 tab 12/31/16 (*)] Medical Decision Making - Diagnostics EKG Interpretation: EKG: Complete interpretation has been separately recorded in the [facility] archive. Summary impression: Sinus rhythm with ventricular bigeminy Imaging Results: Chest x-ray two view shows sternotomy wires, no infiltrate, interpreted by me, radiology interpretation pending. Imaging: I viewed and interpreted images myself Differential Diagnosis: This is a 48-year-old male with history of CAD status post CABG, BENIGNO with CPAP machine at night who presents with mild shortness of breath which began about 1.5 hr ago upon awakening. Here, he is generally well-appearing, initial heart rate demonstrates bradycardia, however when placed on monitoring analyst he is actually in ventricular bigeminy with a rate in the 70s. I suspect he has been in bigeminy for many months and that his bradycardia is actually bigeminy and ventricular beat is not transmitted on pulse oximeter. If this is the case, this is seemingly asymptomatic and is likely unrelated to his shortness of breath. Differential diagnosis includes pneumonia, pneumothorax, worsening BENIGNO, CH F. In the emergency department, the patient was monitored on telemetry. He had continued bigeminy throughout his ED stay. Labs were checked and were unremarkable except for slightly elevated BNP of unclear significance. Patient was ambulated throughout the emergency department and had no desaturations or shortness of breath. He felt quite well. His symptoms have mostly resolved. At this point I feel it is safe for him to follow up with his greeter later today. I wonder if his symptoms are related to BENIGNO versus anxiety verses his ventricular bigeminy. - Data Points Laboratory Results: Laboratory Results 04/06/18 04:22 04/06/18 04:22 04/06/18 04/06/18 04/06/18 04:23 04:22 04:22 WBC RBC Hgb Hct MCV MCH MCHC RDW Plt Count MPV Neut % (Auto) Lymph % (Auto) [place] % (Auto) Eos % (Auto) Baso % (Auto) Nucleat RBC Rel Count Absolute Neuts (auto) Absolute Lymphs (auto) Absolute Monos (auto) Absolute Eos (auto) Absolute Basos (auto) Absolute Nucleated RBC Immature Gran % Immature Gran # Sodium 139 mEq/L mEq/L (135-145) Potassium 4.5 mEq/L mEq/L (3.3-5.0) Chloride 105 mEq/L mEq/L (97-110) Carbon Dioxide 22 mEq/l mEq/l (22-31) Anion Gap 12 mEq/L mEq/L (8-16) BUN 13 mg/dL mg/dL (7-23) Creatinine 1.1 mg/dL mg/dL (0.7-1.3) Estimated GFR > 60 Glucose 93 mg/dL mg/dL (70-100) Calcium 9.7 mg/dL mg/dL (8.5-10.4) Magnesium 2.0 mg/dL mg/dL (1.6-2.3) POC Troponin I 0.00 ng/mL ng/mL (0.00-0.08) NT-Pro-B Natriuret Pep 460 pg/mL H pg/mL (0-125) 04/06/18 04:22 WBC 8.28 10^3/uL 10^3/uL (3.80-9.50) RBC 5.07 10^6/uL 10^6/uL (4.40-6.38) Hgb 16.3 g/dL g/dL (13.7-17.5) Hct 45.9 % % (40.0-51.0) MCV 90.5 fL fL (81.5-99.8) MCH 32.1 pg pg (27.9-34.1) MCHC 35.5 g/dL g/dL (32.4-36.7) RDW 13.4 % % (11.5-15.2) Plt Count 199 10^3/uL 10^3/uL (150-400) MPV 10.1 fL fL (8.7-11.7) Neut % (Auto) 46.7 % % (39.3-74.2) Lymph % (Auto) 41.2 % % (15.0-45.0) [place] % (Auto) 9.7 % % (4.5-13.0) Eos % (Auto) 1.6 % % (0.6-7.6) Baso % (Auto) 0.6 % % (0.3-1.7) Nucleat RBC Rel Count 0.0 % % (0.0-0.2) Absolute Neuts (auto) 3.87 10^3/uL 10^3/uL (1.70-6.50) Absolute Lymphs (auto) 3.41 10^3/uL H 10^3/uL (1.00-3.00) Absolute Monos (auto) 0.80 10^3/uL 10^3/uL (0.30-0.80) Absolute Eos (auto) 0.13 10^3/uL 10^3/uL (0.03-0.40) Absolute Basos (auto) 0.05 10^3/uL 10^3/uL (0.02-0.10) Absolute Nucleated RBC 0.00 10^3/uL 10^3/uL (0-0.01) Immature Gran % 0.2 % % (0.0-1.1) Immature Gran # 0.02 10^3/uL 10^3/uL (0.00-0.10) Sodium Potassium Chloride Carbon Dioxide Anion Gap BUN Creatinine Estimated GFR Glucose Calcium Magnesium POC Troponin I NT-Pro-B Natriuret Pep Point of Care Test Results: Chemistry 04/06/18 04:23 POC Troponin I 0.00 ng/mL ng/mL (0.00-0.08) Departure - Departure Disposition: Home, Routine, Self-Care Clinical Impression: Shortness of breath, S/P CABG x 3, Ventricular bigeminy Condition: Good Instructions: Shortness of Breath (ED) Additional Instructions: Please follow-up with the greeter later today as planned. Referrals: Erick Cruz MD [Primary Care Provider] - As per Instructions Dustin Alexander MD [Medical Doctor] - As per Instructions
[2018-04-06 05:55] VITALS: BP 136/83
--- NOTE | 2018-04-06 06:11 | CPEKG ---
Test Reason : OPEN Blood Pressure : / mmHG Vent. Rate : 089 BPM Atrial Rate : 035 BPM P-R Int : 182 ms QRS Dur : 090 ms QT Int : 414 ms P-R-T Axes : 032 029 178 degrees QTc Int : 504 ms Sinus rhythm Ventricular bigeminy Anteroseptal infarct, old Nonspecific T abnormalities, lateral leads Confirmed by Makenzie Bah ([id number]) on 04/06/2018 6:11:49 AM Referred By: Confirmed By:Makenzie Bah
== END 2018-04-06 05:55 | disposition home or self-care (01) ==
DX: R06.02 Shortness of breath (principal); R00.8 Other abnormalities of heart beat; G47.33 Obstructive sleep apnea (adult) (pediatric); I25.10 Atherosclerotic heart disease of native coronary artery without angina pectoris; Z95.1 Presence of aortocoronary bypass graft; Z95.5 Presence of coronary angioplasty implant and graft
CPT/HCPCS: 84484-PO